=== PATIENT | male | born 1950 | race African-American/Black ===

== ENCOUNTER 2018-11-09 09:30 | Observation (INO) ==
[2018-11-09] MEDS ORDERED: *HR* OxyCODONE Immed Rel 5 MG TABLET PO PRN (12:19)
[2018-11-09] MEDS ORDERED: *HR* HYDROcodone/Acet 5/325 mg TABLET PO PRN (12:19)
[2018-11-09] MEDS ORDERED: Naloxone 0.4 MG/ML INJ IVP PRN (12:19)
[2018-11-09] MEDS ORDERED: *HR* Belladonna Alkaloids/Opium 30 MG RECTAL SUPPOSITORY RC PRN (12:19)
[2018-11-09] MEDS ORDERED: Ondansetron 4 MG/2 ML VIAL IVP PRN (12:19)
[2018-11-09 13:29] LABS: Basophils # 0.1 K/mcL (0.0-0.2); Basophils % 0.5 %; Eosinophils % 0.2 %; Hematocrit 25.3 % (37.5-50.1); Immature Granulocytes % 0.5 % (0-4); Lymphocytes # 2.1 K/mcL (0.6-4.6); Lymphocytes % 18.7 %; Mean Corpuscular HGB Conc 31.2 g/dL (31.6-35.5); Mean Corpuscular Hemoglobin 28.7 pg (28.0-33.3); Mean Platelet Volume 8.8 fL (9.4-12.4); Monocytes # 0.5 K/mcL (0.0-1.3); Monocytes % 4.4 %; Neutrophils # 8.7 K/mcL (1.6-8.9); Platelet Count 366 K/mcL (140-400); Red Blood Count 2.75 M/mcL (4.19-5.50); Segmented Neutrophils % 75.7 %; White Blood Count 11.4 K/mcL (4.3-11.1)
[2018-11-09 13:30] LABS: Hemoglobin 7.9 g/dL (12.9-16.9)
[2018-11-09 13:40] LABS: Potassium 4.4 mEq/L (3.5-5.1)
[2018-11-09] MEDS: 0.9 % Sodium Chloride 1,000 ML IVC SCH (14:36)
--- NOTE | 2018-11-09 16:59 | Urology History & Physical ---
Date of Encounter: 11/09/18 Time of Encounter: 16:56 Assessment and Plan (1) Clot retention of urine Current Visit: Yes Status: Acute CT scan confirms a large amount of clot within his bladder. We will proceed with clot evacuation and fulguration of prostate or any other indicated procedure tomorrow. Hemoglobin at this time 7.9. Patient typed and screened for 2 units. Continue Plavix because of recent heart attack and coronary artery stent. (2) Gross hematuria Current Visit: No Status: Resolved History of Present Illness Chief complaint: Clot retention HPI: Mr. Bernardo is a 68 year old male 4 weeks status post greenlight photo vaporization of the prostate. Was doing well. Clot retention last week. Urine cleared but he returns today because the catheter stopped draining. Past Med Surg Social Fam HX - Past Medical History Medical history: hyperlipidemia, hypertension, myocardial infarction, thyroid disease Additional medical history: snoring, anemia Psychiatric history: no psych history - Past Surgical History Surgical History: angioplasty/stent, knee replacement Additional surgical history: one cardiac stent - Social History Smoking Status: Never smoker Smokeless Tobacco Status: No Alcohol use: none Drug use: none - Family History Mother Living Status: Father Living Status: Medications and Allergies Aspirin 81 mg PO DAILY #30 tab.chew 08/01/18 [Rx] Clopidogrel [Plavix] 75 mg PO DAILY #30 tablet 08/01/18 [Rx] Losartan [Cozaar] 25 mg PO DAILY #30 tablet 08/01/18 [Rx] Metoprolol [Lopressor] 25 mg PO BID #60 tablet 08/01/18 [Rx] amLODIPine [Norvasc] 5 mg PO DAILY #30 tablet 08/01/18 [Rx] Atorvastatin Calcium 80 mg PO HS 10/09/18 [History] metFORMIN [Glucophage] 500 mg PO 0800 10/09/18 [History] Allergy/AdvReac Type Severity Reaction Status Date / Time No Known Allergies Allergy Verified 10/09/18 07:14 Review of Systems - Constitutional fatigue, no chills, no fever(s) - EENT Nose, mouth and throat: no dizziness - Cardiovascular no chest pain - Respiratory no cough - Gastrointestinal abdominal pain - Genitourinary hematuria - Musculoskeletal back pain - Integumentary no erythema - Neurological as per HPI, no confusion - Psychiatric no anxiety - Hematologic/Lymphatic easy bleeding - Allergic/Immunologic no throat swelling Exam Initial Vital Signs Temp Pulse Resp BP Pulse Ox 97.7 F 84 16 125/79 100 11/09/18 10:37 11/09/18 10:37 11/09/18 10:37 11/09/18 10:37 11/09/18 10:37 - General physical appearance Present: no distress, moderate pain - Eyes Present: PERRL - ENT Present: normal nares - Neck Present: no masses - Respiratory Present: normal respiratory effort - Cardiovascular Cardiovascular exam IM: RRR - Abdomen Abdomen: Present: soft, suprapubic tenderness (Distended) - Neurologic Present: normal coordination. Absent: disoriented, confused - Additional Findings Fish catheter in place. I irrigated moderate amount of black clot. CBI did not clear his urine. Urology Results - Labs 11/09/18 13:08 11/09/18 13:08 Abnormal lab results WBC 11.4 K/mcL (4.3-11.1) H 11/09/18 13:08 RBC 2.75 M/mcL (4.19-5.50) L 11/09/18 13:08 Hgb 7.9 g/dL (12.9-16.9) L D 11/09/18 13:08 Hct 25.3 % (37.5-50.1) L 11/09/18 13:08 MCHC 31.2 g/dL (31.6-35.5) L 11/09/18 13:08 RDW 16.0 % (11.5-14.5) H 11/09/18 13:08 MPV 8.8 fL (9.4-12.4) L 11/09/18 13:08 Chloride 109 mEq/L (98-107) H 11/09/18 13:08 BUN 26 mg/dL (8-23) H 11/09/18 13:08 1.54 mg/dL (0.70-1.30) H 11/09/18 13:08 Est GFR ( Amer) 55 (> 60) L 11/09/18 13:08 Est GFR (Non-Af Amer) 45 (> 60) L 11/09/18 13:08 Glucose 125 mg/dL (70-105) H 11/09/18 13:08 Diabetes panel 11/09/18 Range/Units 13:08 Sodium 140 (136-145) mEq/L Potassium 4.4 (3.5-5.1) mEq/L Chloride 109 H (98-107) mEq/L Carbon Dioxide 23 (23-29) mEq/L BUN 26 H (8-23) mg/dL Creatinine 1.54 H (0.70-1.30) mg/dL Glucose 125 H (70-105) mg/dL Calcium 9.0 (8.6-10.3) mg/dL Calcium panel 11/09/18 Range/Units 13:08 Calcium 9.0 (8.6-10.3) mg/dL Pituitary panel 11/09/18 Range/Units 13:08 Sodium 140 (136-145) mEq/L Potassium 4.4 (3.5-5.1) mEq/L Chloride 109 H (98-107) mEq/L Carbon Dioxide 23 (23-29) mEq/L BUN 26 H (8-23) mg/dL Creatinine 1.54 H (0.70-1.30) mg/dL Glucose 125 H (70-105) mg/dL Calcium 9.0 (8.6-10.3) mg/dL Adrenal panel 11/09/18 Range/Units 13:08 Sodium 140 (136-145) mEq/L Potassium 4.4 (3.5-5.1) mEq/L Chloride 109 H (98-107) mEq/L Carbon Dioxide 23 (23-29) mEq/L BUN 26 H (8-23) mg/dL Creatinine 1.54 H (0.70-1.30) mg/dL Glucose 125 H (70-105) mg/dL Calcium 9.0 (8.6-10.3) mg/dL All other labs normal.
--- NOTE | 2018-11-09 18:30 | Anesthesia Evaluation PreOp ---
Date of Encounter: 11/09/18 Time of Encounter: 18:28 - Past History Planned Operation: CYSTO, CLOT EVAC, POSS TURP Cardiac History: MD (07/2018), HTN, Hyperlipidemia, Cardiac Stent (07/2018, mLAD), Other (CAD, dLAD, RPDA) Pulmonary History: Denies Any Significant HX LACTATION SPECIALIST History: Denies Any Significant HX Other Medical History: Renal (4 WKS, POST TURP), Bleeding (ANEMIA, WILL NEED PRBC IF HB IS LOWER IN AM, SECONDARY RESIDUAL CAD), Diabetes Type II, Thyroid Anesthesia History: No Prior Anesthetic Complications, Past Anesthesia Alcohol Use: none Drug use: none Medications and Allergies Aspirin 81 mg PO DAILY #30 tab.chew 08/01/18 [Rx] Clopidogrel [Plavix] 75 mg PO DAILY #30 tablet 08/01/18 [Rx] Losartan [Cozaar] 25 mg PO DAILY #30 tablet 08/01/18 [Rx] Metoprolol [Lopressor] 25 mg PO BID #60 tablet 08/01/18 [Rx] amLODIPine [Norvasc] 5 mg PO DAILY #30 tablet 08/01/18 [Rx] Atorvastatin Calcium 80 mg PO HS 10/09/18 [History] metFORMIN [Glucophage] 500 mg PO 0800 10/09/18 [History] Allergy/AdvReac Type Severity Reaction Status Date / Time No Known Allergies Allergy Verified 10/09/18 07:14 - Meds/Allergy Pre-op Review Medications Reviewed: Yes Allergies Reviewed: Yes Beta Blockers on Current Med List: Yes (METOPROLOL 25 MG BID) If Beta Blockers taken, Date/Time (Last Dose taken): SEE MAR Anesthesia Results - Labs 11/09/18 13:08 11/09/18 13:08 Laboratory Tests 11/09/18 13:08 Est GFR (Non-Af Amer) 45 L Calcium 9.0 Anesthesia Exam Vital Signs/O2 Sat/Glucose, Most Recent Temp Pulse Resp BP Pulse Ox 98.5 F 87 16 103/67 99 11/09/18 15:13 11/09/18 15:13 11/09/18 15:13 11/09/18 15:13 11/09/18 15:13 Weight: 92 KG - BMI 29 NPO (# of Hours): >MN - HEENT Mallampati: I Teeth: Poor dentition - Cardiac Rhythm: Regular - Pulmonary Breath Sounds: bilateral Clear Respiratory Effort: Symmetrical Anesthesia Assess/Plan ASA Score: 3 Anesthetic Plan: General Autologous Blood: Yes (POSSIBLE) Monitoring Plan: Standard Monitors Recovery Plan: PACU
[2018-11-10] MEDS: 0.9 % Sodium Chloride 1,000 ML IVC SCH ×2 (03:02→18:00)
[2018-11-10 06:39] LABS: Hematocrit 22.1 % (37.5-50.1); Hemoglobin 6.9 g/dL (12.9-16.9)
[2018-11-10 07:42] LABS: Hematocrit 22.4 % (37.5-50.1)
[2018-11-10] MEDS ORDERED: *HR* Metformin 500 MG TABLET PO SCH (08:00)
--- NOTE | 2018-11-10 08:03 | Urology Progress Note ---
Date of Encounter: 11/10/18 Time of Encounter: 07:57 - Assessment and Plan (1) Clot retention of urine Current Visit: Yes Status: Acute Assessment and plan: based on CT scan - proceed to OR for clot evacuation and fulguration. one unit PRBCs before surgery. (2) Gross hematuria Current Visit: No Status: Resolved Progress Note Subjective: no new complaints Narrative: pt ok overnight. no clot retention. no CP Objective Initial Vital Signs Temp Pulse Resp BP Pulse Ox 97.7 F 84 16 125/79 100 11/09/18 10:37 11/09/18 10:37 11/09/18 10:37 11/09/18 10:37 11/09/18 10:37 - General physical appearance Present: no distress - Additional Exam dark hematuric urine. did not irrigate. no CBI - Labs 11/10/18 07:13 11/09/18 13:08 Diabetes panel 11/09/18 Range/Units 13:08 Sodium 140 (136-145) mEq/L Potassium 4.4 (3.5-5.1) mEq/L Chloride 109 H (98-107) mEq/L Carbon Dioxide 23 (23-29) mEq/L BUN 26 H (8-23) mg/dL Creatinine 1.54 H (0.70-1.30) mg/dL Glucose 125 H (70-105) mg/dL Calcium 9.0 (8.6-10.3) mg/dL Calcium panel 11/09/18 Range/Units 13:08 Calcium 9.0 (8.6-10.3) mg/dL Pituitary panel 11/09/18 Range/Units 13:08 Sodium 140 (136-145) mEq/L Potassium 4.4 (3.5-5.1) mEq/L Chloride 109 H (98-107) mEq/L Carbon Dioxide 23 (23-29) mEq/L BUN 26 H (8-23) mg/dL Creatinine 1.54 H (0.70-1.30) mg/dL Glucose 125 H (70-105) mg/dL Calcium 9.0 (8.6-10.3) mg/dL Adrenal panel 11/09/18 Range/Units 13:08 Sodium 140 (136-145) mEq/L Potassium 4.4 (3.5-5.1) mEq/L Chloride 109 H (98-107) mEq/L Carbon Dioxide 23 (23-29) mEq/L BUN 26 H (8-23) mg/dL Creatinine 1.54 H (0.70-1.30) mg/dL Glucose 125 H (70-105) mg/dL Calcium 9.0 (8.6-10.3) mg/dL
[2018-11-10] MEDS ORDERED: 0.9 % Sodium Chloride 250 ML ONE (08:32)
[2018-11-10] MEDS ORDERED: amLODIPine 5 MG TABLET PO SCH (09:00)
[2018-11-10] MEDS ORDERED: Aspirin 81 MG TAB.CHEW PO SCH (09:00)
[2018-11-10] MEDS ORDERED: *HR* Propofol 200 MG/20 ML VIAL IVP ONE (13:20)
[2018-11-10] MEDS ORDERED: *HR* FentaNYL (PF) 100 MCG/2 ML VIAL ONE ×2 (13:20→15:31)
[2018-11-10] MEDS ORDERED: Ondansetron 4 MG/2 ML VIAL ONE (13:21)
[2018-11-10] MEDS ORDERED: Dexamethasone 4 MG/ML VIAL ONE (13:21)
[2018-11-10] MEDS ORDERED: Lidocaine -MPF 2% 2 ML VIAL ONE (13:21)
[2018-11-10] MEDS ORDERED: *HR* Succinylcholine 200 MG/10 ML VIAL IVP ONE (13:21)
[2018-11-10] MEDS ORDERED: Lidocaine -MPF 4% 5 ML AMPUL ONE (13:27)
[2018-11-10] MEDS ORDERED: Acetaminophen IV 1,000 MG/100 ML INFUS..BTL IVPB ONE (15:02)
[2018-11-10] MEDS ORDERED: *HR* HYDROmorphone (PF) 1 MG/ML SYRINGE IVP PRN ×2 (15:02→16:44)
[2018-11-10] MEDS ORDERED: *HR* OxyCODONE Immed Rel 5 MG TABLET PO PRN ×3 (15:02→16:44)
[2018-11-10] MEDS ORDERED: *HR* Promethazine 25 MG/ML VIAL IVP PRN (15:02)
[2018-11-10] MEDS ORDERED: Ondansetron 4 MG/2 ML VIAL IVP ONE ×2 (15:02→16:44)
[2018-11-10] MEDS ORDERED: CeFAZolin Syr 2,000MG/20 ML 2,000 MG/20 ML SYRINGE IVPB ONE (15:11)
--- NOTE | 2018-11-10 16:19 | Operative Note ---
Date of procedure: 11/10/18 Pre-op diagnosis: Bleeding and clot retention after greenlight Post-op diagnosis: same Procedure: Cystoscopy with clot evacuation TURP Anesthesia: GETA Surgeon: Johnie Campbell Was there an cafeteria assistant present: No Estimated blood loss (cc): 10 Specimen: Clot and TURP chips Condition: stable Disposition: PACU Procedure in Detail: PROCEDURE IN DETAIL: Patient was taken back to the operating room, positioned supine on the operating table. Anesthesia was applied without complication. They were moved into dorsal lithotomy. Careful attention was maintained to cushion pressure points for patient's safety. The patient was prepped and draped in sterile fashion. The existing 3-way catheter was removed prior to prepping the patient . Time-out was performed to confirm the proper patient and procedure. I placed the resectoscope with visual obturator. Once the resectoscope was in position, I visualized a large clot within the dependent portion of the bladder. Kiera syringe was used to evacuate the clot through the resectoscope. There was some oozing from the prostatic urethra but no major bleeding. I used a 22-[place] loop with a coagulation/cut settings of 80/80 was used to resect the friable appearing prostatic tissue within the prostatic urethra. I did not perform an extensive TURP. I turned the coag up to 120 to fulgurate all edges of the prostatic urethra to help with hemostasis. I was able to control the bleeding fairly well but there was still some mild oozing from the tissue even after fulguration. I elected to place a 22-[place] hematuria catheter and the urine was fairly clear on a light drip..
[2018-11-10] MEDS ORDERED: *HR* Belladonna Alkaloids/Opium 30 MG RECTAL SUPPOSITORY RC PRN (16:44)
[2018-11-10] MEDS ORDERED: Ondansetron 4 MG/2 ML VIAL IVP PRN (16:44)
[2018-11-10] MEDS ORDERED: Naloxone 0.4 MG/ML INJ IVP PRN (16:44)
[2018-11-10] MEDS ORDERED: *HR* HYDROcodone/Acet 5/325 mg TABLET PO PRN (16:44)
--- NOTE | 2018-11-10 16:48 | Anesthesia Evaluation Post Op ---
Date of Encounter: 11/10/18 Time of Encounter: 16:20 - Vital Signs Vital Signs: Vital Signs Temp Pulse Resp BP Pulse Ox 11/10/18 16:25 98.2 F 73 12 146/86 100 11/10/18 16:15 80 12 143/86 100 11/10/18 16:05 80 12 130/82 99 11/10/18 15:55 97.7 F 85 12 144/92 100 11/10/18 11:10 97.8 F 72 16 135/88 99 11/10/18 09:00 98.4 F 85 16 144/83 99 11/10/18 08:57 98.6 F 84 16 134/77 11/10/18 07:04 98.2 F 86 18 113/74 98 11/10/18 05:09 98.6 F 84 16 148/84 99 11/09/18 19:20 97.7 F 93 123/74 Intake and Output 11/10/18 11/10/18 11/10/18 07:59 15:59 23:59 Intake Total 1000 / 1350 350 / 1350 Output Total 1100 / 1860 700 / 1860 60 / 1860 Balance -100 / -510 -350 / -510 -60 / -510 Intake: IV Fluids 1000 / 1000 0.9 % Sodium Chloride 1,000 ML 1000 / 1000 @ 75 mls/hr IVC .[id number] [facility] Rx #:[id number] Oral 0 / 0 Blood Product 350 / 350 Rbcs Leuko Poor As-1 Unit 350 / 350 [id number] Output: Urine 850 / 900 50 / 900 Estimated Blood Loss 10 / 10 Catheter 250 / 950 700 / 950 Other: Intake, CBI Fluid 1,000 Output, CBI Fluid 1,000 Weight 91.8 kg Blood Glucose* 111 102 101 Patient Weight 11/10/18 23:59 Weight 91.8 kg - Lungs Lungs: Clear Ascult./Percussion - Airway Airway: Non-obstructed - Cardiovascular Baseline Rhythm - Mental Status Mental Status: Alert & Oriented, Answers Appropriately, Asleep with brisk response to light stimulation - Pain Pain Scale: 3 Pain Scale used: Numeric (1 - 10) - Nausea Vomiting Nausea Vomiting: Not Present - Hydration Hydration: Tolerates oral liquids - Discharge PostOp Status: Transfer Patient to floor Anes Supervising Prov Stmt: PT seen/evaluated, VSS and has met criteria for discharge to floor. - MD Radha
[2018-11-11] MEDS: 0.9 % Sodium Chloride 1,000 ML IVC SCH (01:03)
[2018-11-11 07:22] VITALS: BP 150/85
--- NOTE | 2018-11-11 07:28 | Urology Progress Note ---
Date of Encounter: 11/11/18 Time of Encounter: 07:27 - Assessment and Plan (1) Clot retention of urine Current Visit: Yes Status: Resolved Assessment and plan: CBI stopped and will check urine later this AM. likely discharge today. (2) Gross hematuria Current Visit: No Status: Resolved Progress Note Narrative: urine completely clear overnight. no issues with cath. Objective Initial Vital Signs Temp Pulse Resp BP Pulse Ox 97.7 F 84 16 125/79 100 11/09/18 10:37 11/09/18 10:37 11/09/18 10:37 11/09/18 10:37 11/09/18 10:37 - General physical appearance Present: no distress - Additional Exam urine clear on moderate drip. - Labs 11/10/18 07:13 11/09/18 13:08 Consult Discharge Plan - Plan Referrals: Johnie Campbell MD [Partnered Physician] -
[2018-11-11] MEDS ORDERED: *HR* Metformin 500 MG TABLET PO SCH (08:00)
[2018-11-11] MEDS ORDERED: Aspirin 81 MG TAB.CHEW PO SCH (09:00)
[2018-11-11] MEDS ORDERED: amLODIPine 5 MG TABLET PO SCH (09:00)
[2018-11-11] MEDS ORDERED: Finasteride 5 MG TABLET PO SCH (09:00)
--- NOTE | 2018-11-11 09:02 | Discharge Summary ---
Orders not resulted at time of discharge: Pending orders 11/10/18 16:01 Surgical Pathology [PTH] Routine Date of Encounter: 11/11/18 Time of Encounter: 08:35 - Discharge Diagnosis (1) Clot retention of urine Priority: Primary Status: Resolved (2) Enlarged prostate with urinary obstruction Priority: Primary Status: Chronic - Hospital Course Hospital course: Mr. Bernardo is a 68 year old male who presents with a history of gross hematuria with clot retention following a greenlight PVP for enlarged prostate w ith outlet obstruction. On 11/10/2018, patient was taken to the operating room where he underwent cystoscopy with clot evacuation and transurethral resection of prostate. There were no surgical complications, and the patient tolerated the procedure well. Postoperative course was relatively unremarkable, and he was dismissed in satisfactory condition. Continuous bladder irrigation was discontinued on postoperative day #1, the patient's urine remained clear. Patient is aware he will need to continue finasteride daily to minimize risk of bleeding, and he will return to the urology office in 5 days for outpatient follow-up and catheter removal. Postoperative expectations, restrictions, activity and follow-up were discussed with patient, and patient verbalized understanding. Time spent discussing smoking cessation with patient: 3 to 10 minutes - Time Spent with Patient Total time spent providing and/or coordinating discharge services: Less than 30 minutes Procedures and tests throughout hospitalization: Cystoscopy with clot evacuation TURP Labs on day of discharge: Labs from last 24 hours 11/10/18 11/10/18 11/09/18 20:17 12:14 17:07 POC Glucose 146 H 102 H Blood Type A POSITIVE Antibody Screen NEGATIVE Crossmatch See Detail - Impressions ITS Impressions Pelvis CT 11/09/18 14:00 IMPRESSION: Distended bladder with extensive intraluminal hemorrhage and likely clots. Loculated air within the anterior aspect of the bladder with Fish catheter. Enlarged prostate gland indenting the base of the bladder. D/ / 11/09/2018 14:13:52 Kendell Cutler MD / patrice Interpreting Provider: Kendell Cutler MD - Discharge Medications Prescriptions: New HYDROcodone/Acet 5/325 mg [[place] 5-325 mg] 1 tab PO Q6H PRN 2 Days #8 tab PRN Reason: Pain Continued amLODIPine [Norvasc] 5 mg PO DAILY #30 tablet Clopidogrel [Plavix] 75 mg PO DAILY #30 tablet Losartan [Cozaar] 25 mg PO DAILY #30 tablet Metoprolol [Lopressor] 25 mg PO BID #60 tablet metFORMIN [Glucophage] 500 mg PO DAILY Atorvastatin Calcium 80 mg PO DAILY Aspirin Enteric Coated [Aspirin EC] 81 mg PO DAILY Home Medications: Clopidogrel [Plavix] 75 mg PO DAILY #30 tablet 08/01/18 [Rx] Losartan [Cozaar] 25 mg PO DAILY #30 tablet 08/01/18 [Rx] Metoprolol [Lopressor] 25 mg PO BID #60 tablet 08/01/18 [Rx] amLODIPine [Norvasc] 5 mg PO DAILY #30 tablet 08/01/18 [Rx] Atorvastatin Calcium 80 mg PO DAILY 10/09/18 [History] metFORMIN [Glucophage] 500 mg PO DAILY 10/09/18 [History] Aspirin Enteric Coated [Aspirin EC] 81 mg PO DAILY 11/10/18 [History] HYDROcodone/Acet 5/325 mg [[place] 5-325 mg] 1 tab PO Q6H PRN 2 Days #8 tab 11/11/18 [Rx] Allergies/Adverse Reactions: Allergy/AdvReac Type Severity Reaction Status Date / Time No Known Allergies Allergy Verified 11/10/18 20:40 Date of admission: 11/09/18 10:20 Primary care physician: PCP NONE Discharging clinician: Rose Uriostegui Anticipated date of discharge: 11/11/18 Exam Initial Vital Signs Temp Pulse Resp BP Pulse Ox 97.7 F 84 16 125/79 100 11/09/18 10:37 11/09/18 10:37 11/09/18 10:37 11/09/18 10:37 11/09/18 10:37 - General physical appearance Present: well developed, no distress, no pain - Eyes Present: PERRL, normal ocular movement - ENT Present: normal nares, no hearing loss, no congestion - Neck Present: no masses, trachea midline, no lymphadenopathy - Respiratory Present: normal respiratory effort - Cardiovascular Cardiovascular exam IM: RRR - Abdomen Abdomen: Present: soft, non tender. Absent: distended - Genitourinary other (Fish catheter is indwelling and draining transparent, clear yellow urine into bedside bag; CBI is) - Integumentary Present: no rash, no abnormal pigmentation - Neurologic Present: normal coordination - Musculoskeletal Present: other (normal posture ) - Patient Status Disposition: Home, Self-Care Condition: Good Functional capacity at discharge: independent ambulation Overall status at discharge: patient is progressing back to baseline - Discharge Instructions Follow Up With: Johnie Campbell MD [Partnered Physician] - Additional Instructions: Call if fever greater than 101 degrees. May expect some light blood in the urine. May expect irritating voiding symptoms such as frequency, hesitancy, burning, urgency. Okay to use Azo [id number]. Continue finasteride daily. Okay to shower. No tub baths, hot tubs, or swimming. No lifting greater than 20 pounds or heavy activity. Okay to drive as long as you are no longer taking narcotic pain medicine. Okay to use [id number] stool softeners twice daily. Catheter care instructions provided by nursing staff. May follow up in urology office as scheduled for catheter removal. - Diet and Activity Activity: increase activity as tolerated Diet: advance to your usual diet
== END 2018-11-11 13:19 | disposition home or self-care (01) ==
LOC: 3ANU
PROVIDERS: ADMIT Urology; ATTEND Urology
PROC: UROTURP (2018-11-10 15:20)

== ENCOUNTER 2019-01-05 20:50 | Inpatient (IN) ==
--- NOTE | 2019-01-05 21:28 | Emergency Department Note ---
Disposition Clinical Impression: Anemia Qualifiers: Anemia type: unspecified type Qualified Code(s): D64.9 - Anemia, unspecified Hematuria Qualifiers: Hematuria type: unspecified type Qualified Code(s): R31.9 - Hematuria, unspecified CKD (chronic kidney disease) Qualifiers: Chronic kidney disease stage: stage 3 (moderate) Qualified Code(s): N18.3 - Chronic kidney disease, stage 3 (moderate) Disposition: Admitted As Inpatient Condition: Fair Forms: ED Satisfaction Letter, Work/School Release Time of Disposition: 22:33 General Adult HPI - General Chief complaint: ED General Medical Stated complaint: Dr. Stanton, Low Hemoglobin Time Seen by Provider: 01/05/19 21:11 Source: patient Mode of arrival: ambulatory Limitations: no limitations Nursing Notes Reviewed: Yes Vital Signs Reviewed: Yes - History of Present Illness HPI Narrative: Patient is a 68-year-old male that presents emergency Department with reports of low hemoglobin. Patient states that he saw his urologist yesterday and had blood work drawn and he was called and told that he needed to go to the emergency department immediately. Patient states that he has had an issue with his hemoglobin since July when he had his heart attack. Patient states that in early November he had a urologic procedure and had some bleeding at that time. Patient states that he saw urology yesterday and had some clots flushed out of his Fish catheter and had blood work drawn and this is what he was called in for. Patient states that his bleeding has been worse since Friday which is approximately 3 days ago. Patient states at that time it was dark-colored blood. Patient states that it is now more of a cranberry juice color. Patient states that he has felt light headed and weak. Patient denies any chest pain, shortness of breath or abdominal pain. Patient states that he has not had any issues with urine draining from his Fish catheter. Pain Scale: 0 - Related Data Home Medications Medication Instructions Recorded Confirmed Atorvastatin Calcium 80 mg PO DAILY 10/09/18 01/05/19 metFORMIN [Glucophage] 500 mg PO DAILY 10/09/18 01/05/19 Aspirin Enteric Coated [Aspirin EC] 81 mg PO DAILY 11/10/18 01/05/19 Finasteride [Proscar] 5 mg PO DAILY 12/04/18 01/05/19 Previous Rx's Medication Instructions Recorded Clopidogrel [Plavix] 75 mg PO DAILY #30 tablet 08/01/18 Losartan [Cozaar] 25 mg PO DAILY #30 tablet 08/01/18 Metoprolol [Lopressor] 25 mg PO BID #60 tablet 08/01/18 amLODIPine [Norvasc] 5 mg PO DAILY #30 tablet 08/01/18 Ferrous Sulfate 325 mg PO BIDWM tablet 12/10/18 Allergies Allergy/AdvReac Type Severity Reaction Status Date / Time No Known Allergies Allergy Verified 01/05/19 21:22 All systems ED: reviewed and negative except as stated. Constitutional: Reports: weakness (Generalized). Denies: fever Cardiovascular: Denies: chest pain Respiratory: Denies: dyspnea Gastrointestinal: Denies: abdominal pain Genitourinary: Reports: hematuria Past Medical History - Past Medical History Medical history: Reports: hyperlipidemia, hypertension, myocardial infarction, thyroid disease Surgical history: Reports: angioplasty/stent, knee replacement Psychiatric history: Reports: no psych history - Social History Smoking Status: Never smoker Smokeless Tobacco Status: No Alcohol use: Reports: none Drug use: Reports: none Physical Exam - General Limitations: no limitations General appearance: alert, in no apparent distress - Head Head exam: atraumatic, normocephalic - Eye Eye exam: Present: normal appearance, EOMI - Neck Neck exam: Present: normal inspection, full ROM, trachea midline - Respiratory Respiratory exam: Present: normal lung sounds bilaterally. Absent: respiratory distress, wheezes - Cardiovascular Cardiovascular exam: Present: regular rate, normal rhythm, normal heart sounds, +S1, +S2 - Abdominal Exam Abdominal exam: Present: soft, Non-Tender, normal bowel sounds - Male exam: Present: other (Patient has a Fish catheter in place with a very small amount of blood tinged urine in his Fish leg bag.) - Neurological Exam Neurological exam: Present: alert, oriented X3 - Psychiatric Psychiatric exam: Present: normal affect, normal mood - Skin Skin exam: Present: warm, dry, intact Course Vital Signs Temperature 98.1 F 01/05/19 20:55 Pulse Rate 121 01/05/19 20:55 Respiratory Rate 15 01/05/19 20:55 Blood Pressure 110/64 01/05/19 20:55 O2 Sat by Pulse Oximetry 100 01/05/19 20:55 Temperature 98.4 F 01/05/19 21:40 Pulse Rate 107 01/05/19 21:40 Respiratory Rate 20 01/05/19 21:40 Blood Pressure 113/72 01/05/19 21:40 O2 Sat by Pulse Oximetry 100 01/05/19 21:40 Oxygen Delivery Oxygen Delivery Room Air Medical Decision Making - MDM Narrative Medical decision making narrative: Due the patient was anything to the emergency department with reports of a low hemoglobin and a hemoglobin that was measured earlier today at 4.5 the patient will have a CBC, BMP, PT/INR and a type and screen as well as an EKG. 2 units of packed red blood cells were ordered. Patient was mildly tachycardic but was not hypotensive. Patient was initially alert and oriented and conversive on exam. Patient has a repeat hemoglobin of 4.3. Patient's renal functions approximate his baseline. I did call and speak to the on-call urologist Dr. Meehan who has agreed to see the patient in consult. Patient will require admission to the hospital for further evaluation and management. His PT/INR was within normal limits. Urinalysis was pending at the time of admission. Spoke with the admitting hospitalist Dr. Danielle and she has accepted the patient their service. Patient be admitted hospital this time for further evaluation of his hematuria and anemia. - Medical Records Medical records reviewed: Yes I reviewed the patient's medical records. - Lab Data Lab results reviewed: Yes I reviewed the patient's lab results. Result diagrams: 01/05/19 21:16 01/05/19 21:16 Lab Results 01/05/19 01/05/19 01/05/19 Range/Units 21:16 21:16 21:16 WBC 11.1 (4.3-11.1) K/mcL RBC 1.48 L (4.19-5.50) M/mcL Hgb 4.3 L* (12.9-16.9) g/dL Hct 14.4 L* (37.5-50.1) % MCV 97.3 (83.0-100.0) fL MCH 29.1 (28.0-33.3) pg MCHC 29.9 L (31.6-35.5) g/dL RDW 16.2 H (11.5-14.5) % Plt Count 277 (140-400) K/mcL MPV 9.1 L (9.4-12.4) fL Immature Gran % 0.4 (0-4) % Seg Neutrophils % 56.7 % Lymphocytes % 33.1 % Monocytes % 7.7 % Eosinophils % 2.1 % Basophils % 0.0 % Neutrophils # 6.3 (1.6-8.9) K/mcL Lymphocytes # 3.7 (0.6-4.6) K/mcL Monocytes # 0.9 (0.0-1.3) K/mcL Eosinophils # 0.2 (0.0-0.6) K/mcL Basophils # 0.0 (0.0-0.2) K/mcL PT 11.3 (9.4-12.1) Seconds INR 1.0 APTT 27.6 (26.0-36.0) Seconds Sodium 142 (136-145) mEq/L Potassium 4.3 (3.5-5.1) mEq/L Chloride 113 H (98-107) mEq/L Carbon Dioxide 21 L (23-29) mEq/L BUN 29 H (8-23) mg/dL Creatinine 1.80 H (0.70-1.30) mg/dL Est GFR ( Amer) 46 L (> 60) Est GFR (Non-Af Amer) 38 L (> 60) BUN/Creatinine Ratio 16 (6-26) Glucose 123 H (70-105) mg/dL Calculated Osmolality 301 H (280-300) Calcium 9.2 (8.6-10.3) mg/dL - Radiology Data Radiology results reviewed: Yes I reviewed the patient's radiology results. - EKG Data EKG #1 EKG attestation: Yes I reviewed and interpreted this EKG. EKG results narrative: EKG shows a sinus tachycardia at a rate of 101 bpm, GA interval 216, QRS duration 99, QTC of 452. There is no evidence of STEMI on EKG.
[2019-01-05 21:48] LABS: Eosinophils # 0.2 K/mcL (0.0-0.6); Eosinophils % 2.1 %; Immature Granulocytes % 0.4 % (0-4); Lymphocytes # 3.7 K/mcL (0.6-4.6); Lymphocytes % 33.1 %; Mean Corpuscular HGB Conc 29.9 g/dL (31.6-35.5); Mean Corpuscular Hemoglobin 29.1 pg (28.0-33.3); Mean Corpuscular Volume 97.3 fL (83.0-100.0); Mean Platelet Volume 9.1 fL (9.4-12.4); Monocytes # 0.9 K/mcL (0.0-1.3); Monocytes % 7.7 %; Neutrophils # 6.3 K/mcL (1.6-8.9); Platelet Count 277 K/mcL (140-400); Red Blood Count 1.48 M/mcL (4.19-5.50); Red Cell Distribution Width 16.2 % (11.5-14.5); Segmented Neutrophils % 56.7 %; White Blood Count 11.1 K/mcL (4.3-11.1)
[2019-01-05 21:50] LABS: Hematocrit 14.4 % (37.5-50.1); Hemoglobin 4.3 g/dL (12.9-16.9)
[2019-01-05 21:54] LABS: Prothrombin Time 11.3 Seconds (9.4-12.1)
[2019-01-05 21:57] LABS: Activated Partial Thrombo Time 27.6 Seconds (26.0-36.0)
[2019-01-05 21:58] LABS: Calcium 9.2 mg/dL (8.6-10.3); Potassium 4.3 mEq/L (3.5-5.1)
--- NOTE | 2019-01-05 22:44 | Emergency Department Note ---
Disposition Clinical Impression: Anemia Qualifiers: Anemia type: unspecified type Qualified Code(s): D64.9 - Anemia, unspecified Hematuria Qualifiers: Hematuria type: unspecified type Qualified Code(s): R31.9 - Hematuria, unspecified CKD (chronic kidney disease) Qualifiers: Chronic kidney disease stage: stage 3 (moderate) Qualified Code(s): N18.3 - Chronic kidney disease, stage 3 (moderate) Disposition: Admitted As Inpatient Condition: Fair Forms: ED Satisfaction Letter, Work/School Release Time of Disposition: 22:33 General Adult HPI - General Chief complaint: ED General Medical Stated complaint: Dr. Stanton, Low Hemoglobin Time Seen by Provider: 01/05/19 21:11 Source: patient Mode of arrival: ambulatory Limitations: no limitations Nursing Notes Reviewed: Yes Vital Signs Reviewed: Yes - History of Present Illness Pain Scale: 0 - Related Data Home Medications Medication Instructions Recorded Confirmed Atorvastatin Calcium 80 mg PO DAILY 10/09/18 01/05/19 metFORMIN [Glucophage] 500 mg PO DAILY 10/09/18 01/05/19 Aspirin Enteric Coated [Aspirin EC] 81 mg PO DAILY 11/10/18 01/05/19 Finasteride [Proscar] 5 mg PO DAILY 12/04/18 01/05/19 Previous Rx's Medication Instructions Recorded Clopidogrel [Plavix] 75 mg PO DAILY #30 tablet 08/01/18 Losartan [Cozaar] 25 mg PO DAILY #30 tablet 08/01/18 Metoprolol [Lopressor] 25 mg PO BID #60 tablet 08/01/18 amLODIPine [Norvasc] 5 mg PO DAILY #30 tablet 08/01/18 Ferrous Sulfate 325 mg PO BIDWM tablet 12/10/18 Allergies Allergy/AdvReac Type Severity Reaction Status Date / Time No Known Allergies Allergy Verified 01/05/19 21:22 Constitutional: Reports: weakness (Generalized). Denies: fever Cardiovascular: Denies: chest pain Respiratory: Denies: dyspnea Gastrointestinal: Denies: abdominal pain Genitourinary: Reports: hematuria Past Medical History - Past Medical History Medical history: Reports: hyperlipidemia, hypertension, myocardial infarction, thyroid disease Surgical history: Reports: angioplasty/stent, knee replacement Psychiatric history: Reports: no psych history - Social History Smoking Status: Never smoker Smokeless Tobacco Status: No Alcohol use: Reports: none Drug use: Reports: none Physical Exam - General Limitations: no limitations General appearance: alert, in no apparent distress Course Vital Signs Temperature 98.1 F 01/05/19 20:55 Pulse Rate 121 01/05/19 20:55 Respiratory Rate 15 01/05/19 20:55 Blood Pressure 110/64 01/05/19 20:55 O2 Sat by Pulse Oximetry 100 01/05/19 20:55 Temperature 98.4 F 01/05/19 21:40 Pulse Rate 99 01/05/19 22:18 Respiratory Rate 20 01/05/19 22:18 Blood Pressure 115/77 01/05/19 22:18 O2 Sat by Pulse Oximetry 100 01/05/19 22:18 Oxygen Delivery Oxygen Delivery Room Air Medical Decision Making - Medical Records Medical records reviewed: Yes I reviewed the patient's medical records. - Lab Data Lab results reviewed: Yes I reviewed the patient's lab results. Result diagrams: 01/05/19 21:16 01/05/19 21:16 Lab Results 01/05/19 01/05/19 01/05/19 Range/Units 21:16 21:16 21:16 WBC 11.1 (4.3-11.1) K/mcL RBC 1.48 L (4.19-5.50) M/mcL Hgb 4.3 L* (12.9-16.9) g/dL Hct 14.4 L* (37.5-50.1) % MCV 97.3 (83.0-100.0) fL MCH 29.1 (28.0-33.3) pg MCHC 29.9 L (31.6-35.5) g/dL RDW 16.2 H (11.5-14.5) % Plt Count 277 (140-400) K/mcL MPV 9.1 L (9.4-12.4) fL Immature Gran % 0.4 (0-4) % Seg Neutrophils % 56.7 % Lymphocytes % 33.1 % Monocytes % 7.7 % Eosinophils % 2.1 % Basophils % 0.0 % Neutrophils # 6.3 (1.6-8.9) K/mcL Lymphocytes # 3.7 (0.6-4.6) K/mcL Monocytes # 0.9 (0.0-1.3) K/mcL Eosinophils # 0.2 (0.0-0.6) K/mcL Basophils # 0.0 (0.0-0.2) K/mcL PT 11.3 (9.4-12.1) Seconds INR 1.0 APTT 27.6 (26.0-36.0) Seconds Sodium 142 (136-145) mEq/L Potassium 4.3 (3.5-5.1) mEq/L Chloride 113 H (98-107) mEq/L Carbon Dioxide 21 L (23-29) mEq/L BUN 29 H (8-23) mg/dL Creatinine 1.80 H (0.70-1.30) mg/dL Est GFR ( Amer) 46 L (> 60) Est GFR (Non-Af Amer) 38 L (> 60) BUN/Creatinine Ratio 16 (6-26) Glucose 123 H (70-105) mg/dL Calculated Osmolality 301 H (280-300) Calcium 9.2 (8.6-10.3) mg/dL Blood Type Antibody Screen Crossmatch 01/05/19 Range/Units 21:29 WBC (4.3-11.1) K/mcL RBC (4.19-5.50) M/mcL Hgb (12.9-16.9) g/dL Hct (37.5-50.1) % MCV (83.0-100.0) fL MCH (28.0-33.3) pg MCHC (31.6-35.5) g/dL RDW (11.5-14.5) % Plt Count (140-400) K/mcL MPV (9.4-12.4) fL Immature Gran % (0-4) % Seg Neutrophils % % Lymphocytes % % Monocytes % % Eosinophils % % Basophils % % Neutrophils # (1.6-8.9) K/mcL Lymphocytes # (0.6-4.6) K/mcL Monocytes # (0.0-1.3) K/mcL Eosinophils # (0.0-0.6) K/mcL Basophils # (0.0-0.2) K/mcL PT (9.4-12.1) Seconds INR APTT (26.0-36.0) Seconds Sodium (136-145) mEq/L Potassium (3.5-5.1) mEq/L Chloride (98-107) mEq/L Carbon Dioxide (23-29) mEq/L BUN (8-23) mg/dL Creatinine (0.70-1.30) mg/dL Est GFR ( Amer) (> 60) Est GFR (Non-Af Amer) (> 60) BUN/Creatinine Ratio (6-26) Glucose (70-105) mg/dL Calculated Osmolality (280-300) Calcium (8.6-10.3) mg/dL Blood Type A POSITIVE Antibody Screen NEGATIVE Crossmatch See Detail - EKG Data EKG #1 EKG attestation: Yes I reviewed and interpreted this EKG. EKG results narrative: EKG showed sinus tachycardia with ventricular rate of 101. First-degree A-V block. No significant ST segment elevation or depression. No arrhythmia or ectopy. Critical Care Time Critical Care Time: No Attestation Statement - Attestation Attestation: I, Neil Alvarez MD, personally evaluated this patient and discussed their management with the resident physician. I reviewed the resident's note and agree with the documented findings, medical decision making, and plan of care. I reviewed the residents documentation and agree with the residents assessment and plan of care. I have personally had face to face time with the patient. I personally supervised and was present for the romero/critical portions of the following procedures completed by the resident: EKG interpretation. 68-year-old male referred to the emergency department for severe anemia. Patient has been having problems with ongoing hematuria for some time. He had a procedure by urology last month. He was seen yesterday by Dr. Meehan and had his catheter replaced. He has had increased hematuria with dark red urine for the past 3-4 days or more. He states today the urine is improved and is just cranberry colored. He had lab work today and was found to have a hemoglobin of 4.5. He was contacted by Dr. Meehan and advised to come to the emergency d epartment. He states he has felt a little weak and dizzy intermittently. No chest pain or shortness of breath. No syncope. On examination patient is a well-developed well-nourished well-appearing elderly male in no acute distress. He is alert and oriented 3. There is no cyanosis or diaphoresis. Breath sounds are clear and equal bilaterally. Heart regular with a mild tachycardia. Abdomen is soft and nontender with normal bowel sounds. EKG showed sinus tachycardia with ventricular rate of 101. First-degree A-V block. No significant ST segment elevation or depression. No arrhythmia or ectopy. Labs reviewed. Hemoglobin 4.3. Blood ordered. The hospitalist, Dr. Danielle, was consulted and accepted admission of the patient. The urologist, Dr. Meehan, was also consulted and notified of the patient being admitted to the hospitalist service and will consult on the patient in the hospital.
--- NOTE | 2019-01-06 | Internal Med History&Physical ---
Date of Encounter: 01/06/19 Time of Encounter: 00:00 Internal Medicine - H&P: HPI History of present illness: Mr. Bernardo is a 68 year old male medical history ofhyperlipidemia, hypertension, myocardial infarction, thyroid disease who presented to the ER with abnormal laboratory data as that is suggestive of severe anemia with reported hemoglobin around 4.5 patient the patient status post urologic procedure in November and and has a chronic Fish catheter , the patient reported that since the procedure he has been experiencing gross hematuria. The patient reported progressive worsening of gross hematuria for the last 3 days, The patient was seen by neurology yesterday and and his laboratory data was suggestive of severe anemia and was advised to seek medical attention. The patient complaining of lightheadedness, palpitation however he denies chest pain, shortness of breath, paroxysmal nocturnal dyspnea, orthopnea, or progressive worsening of lower extremity edema. The patient was evaluated by the ER staff, 2 units of RBCs was transfused and patient was admitted for further evaluation and management. Urology was consulted and they will see the patient in a.m.. Past Med Surg Social Fam HX - Past Medical History Medical history: hyperlipidemia, hypertension, myocardial infarction, thyroid disease Additional medical history: snoring, anemia Psychiatric history: no psych history - Past Surgical History Surgical History: angioplasty/stent, knee replacement Additional surgical history: one cardiac stent - Social History Smoking Status: Never smoker Smokeless Tobacco Status: No Alcohol use: none Drug use: none - Family History Mother Living Status: Father Living Status: Internal Medicine - H&P: Meds Clopidogrel [Plavix] 75 mg PO DAILY #30 tablet 08/01/18 [Rx] Losartan [Cozaar] 25 mg PO DAILY #30 tablet 08/01/18 [Rx] Metoprolol [Lopressor] 25 mg PO BID #60 tablet 08/01/18 [Rx] amLODIPine [Norvasc] 5 mg PO DAILY #30 tablet 08/01/18 [Rx] Atorvastatin Calcium 80 mg PO DAILY 10/09/18 [History] metFORMIN [Glucophage] 500 mg PO DAILY 10/09/18 [History] Aspirin Enteric Coated [Aspirin EC] 81 mg PO DAILY 11/10/18 [History] Finasteride [Proscar] 5 mg PO DAILY 12/04/18 [History] Ferrous Sulfate 325 mg PO DAILY 01/05/19 [History] Amoxicillin/Clavulanate [Augmentin] 875 mg PO BIDWM 5 Days #10 tablet 01/10/19 [Rx] Allergy/AdvReac Type Severity Reaction Status Date / Time No Known Allergies Allergy Verified 01/05/19 22:58 All Systems PM: A 10-system review of systems was performed and is negative for pertinent findings except as documented above in the HPI. - Constitutional Vitals: Temp Pulse Resp BP Pulse Ox 99.3 F 91 16 118/79 100 01/05/19 23:48 01/05/19 23:48 01/05/19 23:48 01/05/19 23:48 01/05/19 23:48 General appearance: Present: A&O X 3 Exam: ` - Head Head exam: Present: normocephalic - Neck Neck exam general surgery: Present: supple, trachea midline. Absent: lymphadenopathy - Respiratory Respiratory exam: Present: CTAB. Absent: accessory muscle use, rales, rhonchi, wheezes - Cardiovascular Cardiovascular exam: Present: RRR, +S1, +S2. Absent: diastolic murmur, gallop, rubs, systolic murmur - GI/Abdominal GI/Abdominal exam: Present: normal bowel sounds, soft, no peritoneal signs. Absent: distended, tenderness - Extremities Exam Extremities exam: Present: warm, radial pulses palpable and symmetrical. Absent: calf tenderness, cyanotic, pedal edema Internal Med - H&P Results - Labs CBC & Chem 7: 01/10/19 04:21 01/10/19 04:21 Labs: Short CBC 01/05/19 Range/Units 21:16 WBC 11.1 (4.3-11.1) K/mcL Hgb 4.3 L* (12.9-16.9) g/dL Hct 14.4 L* (37.5-50.1) % Plt Count 277 (140-400) K/mcL Neutrophils # 6.3 (1.6-8.9) K/mcL BMP 01/05/19 21:16 Sodium 142 Potassium 4.3 Chloride 113 H Carbon Dioxide 21 L BUN 29 H Creatinine 1.80 H Glucose 123 H Calcium 9.2 - Assessment and Plan (1) Hematuria Status: Acute Assessment and plan: patient status post urologic procedure in November and and has a chronic Fish catheter , the patient reported that since the procedure he has been experiencing gross hematuria. Hematology has seen the patient on the office and will see the patient this a.m. for further evaluation and management Qualifiers: Hematuria type: gross Qualified Code(s): R31.0 - Gross hematuria (2) Hypertension Status: Chronic Assessment and plan: We will continue home medication, adjust high blood pressure regimen if indicated Qualifiers: Hypertension type: essential hypertension Qualified Code(s): I10 - Essential (primary) hypertension (3) Hypothyroid Status: Acute Assessment and plan: We will continue home thyroxine Qualifiers: Hypothyroidism type: unspecified Qualified Code(s): E03.9 - Hypothyroidism, unspecified (4) Urinary retention with incomplete bladder emptying Status: Acute (5) Enlarged prostate with urinary obstruction Status: Chronic (6) Acute on chronic anemia Status: Acute Assessment and plan: Most likely secondary to chronic blood loss in the setting of hematuria which was exacerbated by the progressive worsening of herhematuria over the last 3 days, we will continue to transfuse for hemoglobin less than 7 continue to monitor H&H closely. The goals of care is to treat the underlying cause of chronic blood loss - Time Spent With Patient Total time spent is greater than 50% in coordination of care (as documented) at patient's floor/unit and/or counseling patient:
[2019-01-06] MEDS ORDERED: Naloxone 0.4 MG/ML INJ IVP PRN (00:59)
[2019-01-06] MEDS ORDERED: Ondansetron 4 MG/2 ML VIAL IVP PRN (01:04)
[2019-01-06] MEDS ORDERED: Dextrose Gel 15 GM/37.5 ML TUBE PO PRN ×2 (01:16)
[2019-01-06] MEDS ORDERED: *HR* Dextrose 50 % in Water (Syg) 50 ML SYRINGE IVP PRN (01:16)
[2019-01-06] MEDS ORDERED: D5% in Water 1,000 ML IVC PRN (01:16)
[2019-01-06] MEDS: 0.9 % Sodium Chloride 1,000 ML IVC SCH ×2 (02:23→11:02)
[2019-01-06 02:45] LABS: Monocytes % 6.3 %; Red Cell Distribution Width 15.1 % (11.5-14.5)
[2019-01-06 02:47] LABS: Basophils % 0.1 %; Eosinophils # 0.2 K/mcL (0.0-0.6); Eosinophils % 1.7 %; Hematocrit 16.4 % (37.5-50.1); Immature Granulocytes % 0.2 % (0-4); Lymphocytes # 3.3 K/mcL (0.6-4.6); Lymphocytes % 33.5 %; Mean Corpuscular HGB Conc 30.5 g/dL (31.6-35.5); Mean Corpuscular Hemoglobin 29.6 pg (28.0-33.3); Mean Platelet Volume 9.2 fL (9.4-12.4); Monocytes # 0.6 K/mcL (0.0-1.3); Neutrophils # 5.7 K/mcL (1.6-8.9); Platelet Count 255 K/mcL (140-400); Red Blood Count 1.69 M/mcL (4.19-5.50); Segmented Neutrophils % 58.2 %; White Blood Count 9.8 K/mcL (4.3-11.1)
[2019-01-06 02:54] LABS: Prothrombin Time 11.6 Seconds (9.4-12.1)
[2019-01-06 03:05] LABS: Albumin 3.3 g/dL (3.5-5.7); Albumin/Globulin Ratio 1.5 (1.1-2.2); Bilirubin,Total 0.4 mg/dL (0.3-1.0); Calcium 8.8 mg/dL (8.6-10.3); Chol/HDL Ratio 2.9 (0-4.9); Globulin 2.2 g/dL (2.4-3.5); Magnesium 1.9 mg/dL (1.6-2.6); Phosphorous 3.8 mg/dL (2.7-4.5); Potassium 3.9 mEq/L (3.5-5.1); Total Protein 5.5 g/dL (6.4-8.9)
[2019-01-06] MEDS ORDERED: 0.9 % Sodium Chloride 250 ML ONE ×2 (04:07→20:49)
[2019-01-06 08:48] LABS: Estimated Average Glucose 97 mg/dl
[2019-01-06 09:19] LABS: Basophils # 0.1 K/mcL (0.0-0.2); Basophils % 0.8 %; Eosinophils # 0.3 K/mcL (0.0-0.6); Eosinophils % 2.8 %; Hematocrit 23.2 % (37.5-50.1); Immature Granulocytes % 0.3 % (0-4); Lymphocytes # 2.5 K/mcL (0.6-4.6); Lymphocytes % 27.7 %; Mean Corpuscular HGB Conc 31.9 g/dL (31.6-35.5); Mean Platelet Volume 8.8 fL (9.4-12.4); Monocytes # 0.5 K/mcL (0.0-1.3); Monocytes % 6.1 %; Neutrophils # 5.5 K/mcL (1.6-8.9); Platelet Count 260 K/mcL (140-400); Red Blood Count 2.55 M/mcL (4.19-5.50); Red Cell Distribution Width 15.7 % (11.5-14.5); Segmented Neutrophils % 62.3 %; White Blood Count 8.9 K/mcL (4.3-11.1)
[2019-01-06 09:22] LABS: Hemoglobin 7.4 g/dL (12.9-16.9)
[2019-01-06] MEDS: Insulin LISPRO 300 UNITS/3 ML VIAL SQ SCH ×3 (09:55→17:54)
--- NOTE | 2019-01-06 10:08 | Urology - Consult Note ---
<Rose Uriostegui N - Last Filed: 01/06/19 10:06> Date of Encounter: 01/06/19 Time of Encounter: 08:00 - Assessment and Plan (1) Hematuria Current Visit: Yes Status: Acute Assessment and plan: Patient is a 68-year-old male who presents with gross hematuria following initial greenlight PVP and cardiac stent placement in September 2018. We discussed holding anticoagulation. Dr. Meehan will reevaluate patient this afternoon. He is considering proceeding with a transurethral resection of prostate. Qualifiers: Hematuria type: gross Qualified Code(s): R31.0 - Gross hematuria Urology CN:HPI Consult date: 01/06/19 Reason for consult Urology: Gross Hematuria Requesting physician: Kj Campbell History of present illness: Patient is a 68-year-old male well-known to our service who presents with a history of gross hematuria and severe iron deficiency anemia. Patient was evaluated in our office 2 days ago on 01/04/2019 at which time he had presented with a 4 day history of gross blood in the urine. A 22-Japanese catheter was placed and applied to leg bag for drainage. Patient reports experiencing multiple clots in his urine over the last 2 days. He began feeling weak and fatigued and subsequently presented to the emergency department. On initial evaluation, his hemoglobin was markedly diminished at 4.3 and hematocrit of 14.4. Patient was urgently admitted and transfused 2 units. Current hemoglobin is 7.4. Patient initially underwent a greenlight photo vaporization of the prostate on 10/09/2018, and he was unable to stop Plavix due to recent history of myocardial infarction and cardiac stent placement. Patient was admitted and treated for clot retention with continuous bladder irrigation. Ultimately, on 11/10/2018, the patient was taken back to the operating room where he underwent a cystoscopy, clot evacuation and fulguration. Patient experienced a similar presentation on 12/04/2018 at which time he was admitted for a hemoglobin of 5.3. Hematuria catheter was placed for 1 week. Patient reports he was doing very well after removal of hematuria catheter up until approximately 1 week ago. On my evaluation, patient is sitting upright in bed in no apparent distress, and he reports feeling somewhat improved at present. 22 Fr-Fish catheter is indwelling and draining opaque tea colored urine. Past Med Surg Social Fam HX - Past Medical History Medical history: hyperlipidemia, hypertension, myocardial infarction, thyroid disease Additional medical history: snoring, anemia Psychiatric history: no psych history - Past Surgical History Surgical History: angioplasty/stent, knee replacement Additional surgical history: one cardiac stent - Social History Smoking Status: Never smoker Smokeless Tobacco Status: No Alcohol use: none Drug use: none - Family History Mother Living Status: Father Living Status: Medications and Allergies Clopidogrel [Plavix] 75 mg PO DAILY #30 tablet 08/01/18 [Rx] Losartan [Cozaar] 25 mg PO DAILY #30 tablet 08/01/18 [Rx] Metoprolol [Lopressor] 25 mg PO BID #60 tablet 08/01/18 [Rx] amLODIPine [Norvasc] 5 mg PO DAILY #30 tablet 08/01/18 [Rx] Atorvastatin Calcium 80 mg PO DAILY 10/09/18 [History] metFORMIN [Glucophage] 500 mg PO DAILY 10/09/18 [History] Aspirin Enteric Coated [Aspirin EC] 81 mg PO DAILY 11/10/18 [History] Finasteride [Proscar] 5 mg PO DAILY 12/04/18 [History] Ferrous Sulfate 325 mg PO DAILY 01/05/19 [History] Allergy/AdvReac Type Severity Reaction Status Date / Time No Known Allergies Allergy Verified 01/05/19 22:58 Review of Systems - Constitutional fatigue, weakness, no chills - EENT Nose, mouth and throat: no dizziness, no headache(s) - Cardiovascular no chest pain, no diaphoresis - Respiratory no cough, no dyspnea - Gastrointestinal no abdominal pain, no nausea, no vomiting - Genitourinary change in urinary stream, difficulty urinating, hematuria, no dysuria, no urinary frequency, no urinary hesitancy, no urinary incontinence, no urinary urgency - Musculoskeletal no back pain, no muscle weakness - Integumentary no erythema, no rash - Neurological weakness, no confusion, no syncope - Psychiatric no anxiety, no confusion - Hematologic/Lymphatic easy bleeding, easy bruising - Allergic/Immunologic no throat swelling, no wheezing Exam Initial Vital Signs Temp Pulse Resp BP Pulse Ox 98.1 F 121 15 110/64 100 01/05/19 20:55 01/05/19 20:55 01/05/19 20:55 01/05/19 20:55 01/05/19 20:55 - General physical appearance Present: well developed, no distress, no pain - Eyes Present: PERRL, normal ocular movement - ENT Present: normal nares, no hearing loss, no congestion - Neck Present: no masses, trachea midline, no lymphadenopathy - Respiratory Present: normal respiratory effort - Cardiovascular Cardiovascular exam IM: RRR - Abdomen Abdomen: Present: soft, non tender. Absent: distended - Genitourinary normal penis with no external lesions, other (Fish catheter is indwelling and draining opaque, tea-colored urine into leg bag) Urethral meatis: Present: patent - Integumentary Present: no rash, no abnormal pigmentation - Neurologic Present: normal coordination - Musculoskeletal Present: other (Normal posture) Urology Results - Labs 01/06/19 09:06 01/06/19 02:35 Abnormal lab results RBC 2.55 M/mcL (4.19-5.50) L 01/06/19 09:06 Hgb 7.4 g/dL (12.9-16.9) L D 01/06/19 09:06 Hct 23.2 % (37.5-50.1) L 01/06/19 09:06 MCHC 30.5 g/dL (31.6-35.5) L 01/06/19 02:35 RDW 15.7 % (11.5-14.5) H 01/06/19 09:06 MPV 8.8 fL (9.4-12.4) L 01/06/19 09:06 Chloride 114 mEq/L (98-107) H 01/06/19 02:35 Carbon Dioxide 21 mEq/L (23-29) L 01/06/19 02:35 BUN 28 mg/dL (8-23) H 01/06/19 02:35 Creatinine 1.63 mg/dL (0.70-1.30) H 01/06/19 02:35 Est GFR ( Amer) 52 (> 60) L 01/06/19 02:35 Est GFR (Non-Af Amer) 43 (> 60) L 01/06/19 02:35 Glucose 123 mg/dL (70-105) H 01/05/19 21:16 Calculated Osmolality 301 (280-300) H 01/05/19 21:16 AST 10 Units/L (13-39) L 01/06/19 02:35 Serum Total Protein 5.5 g/dL (6.4-8.9) L 01/06/19 02:35 Albumin 3.3 g/dL (3.5-5.7) L 01/06/19 02:35 Globulin 2.2 g/dL (2.4-3.5) L 01/06/19 02:35 HDL Cholesterol 36 mg/dL (40-59) L 01/06/19 02:35 Crossmatch See Detail 01/05/19 21:29 Diabetes panel 01/05/19 01/06/19 01/06/19 Range/Units 21:16 02:35 02:35 Sodium 142 140 (136-145) mEq/L Potassium 4.3 3.9 (3.5-5.1) mEq/L Chloride 113 H 114 H (98-107) mEq/L Carbon Dioxide 21 L 21 L (23-29) mEq/L BUN 29 H 28 H (8-23) mg/dL Creatinine 1.80 H 1.63 H (0.70-1.30) mg/dL Glucose 123 H 104 (70-105) mg/dL Hemoglobin A1c 5.0 ( - 5.6) % Calcium 9.2 8.8 (8.6-10.3) mg/dL AST 10 L (13-39) Units/L ALT 11 (7-52) Units/L Alkaline Phosphatase 53 (34-104) Units/L Albumin 3.3 L (3.5-5.7) g/dL Triglycerides 124 (< 150) mg/dL HDL Cholesterol 36 L (40-59) mg/dL Calcium panel 01/05/19 01/06/19 Range/Units 21:16 02:35 Calcium 9.2 8.8 (8.6-10.3) mg/dL Phosphorus 3.8 (2.7-4.5) mg/dL Albumin 3.3 L (3.5-5.7) g/dL Pituitary panel 01/05/19 01/06/19 Range/Units 21:16 02:35 Sodium 142 140 (136-145) mEq/L Potassium 4.3 3.9 (3.5-5.1) mEq/L Chloride 113 H 114 H (98-107) mEq/L Carbon Dioxide 21 L 21 L (23-29) mEq/L BUN 29 H 28 H (8-23) mg/dL Creatinine 1.80 H 1.63 H (0.70-1.30) mg/dL Glucose 123 H 104 (70-105) mg/dL Calcium 9.2 8.8 (8.6-10.3) mg/dL Adrenal panel 01/05/19 01/06/19 Range/Units 21:16 02:35 Sodium 142 140 (136-145) mEq/L Potassium 4.3 3.9 (3.5-5.1) mEq/L Chloride 113 H 114 H (98-107) mEq/L Carbon Dioxide 21 L 21 L (23-29) mEq/L BUN 29 H 28 H (8-23) mg/dL Creatinine 1.80 H 1.63 H (0.70-1.30) mg/dL Glucose 123 H 104 (70-105) mg/dL Calcium 9.2 8.8 (8.6-10.3) mg/dL Total Bilirubin 0.4 (0.3-1.0) mg/dL AST 10 L (13-39) Units/L ALT 11 (7-52) Units/L Alkaline Phosphatase 53 (34-104) Units/L Albumin 3.3 L (3.5-5.7) g/dL All other labs normal. Consult Discharge Plan - Plan Referrals: NONE,PCP [Primary Care Provider] - <John Meehan - Last Filed: 01/06/19 23:03> Date of Encounter: 01/06/19 - Assessment and Plan (1) Hematuria Current Visit: Yes Status: Acute Assessment and plan: Patient seen and examined independently. Above findings verified. Discussed options for management of recurrent admissions for hemodynamically significant intermittent hematuria following laser vaporization of the prostate in September of this year. Presented with H/H of 09/08. Plan: Hold anticoagulation for 48-72 hours in anticipation of TURP on Friday for surgical address of non-healing post PVP prostatic fossa with recurrent life threatening hematuria. Monitor and transfuse as required. Qualifiers: Hematuria type: gross Qualified Code(s): R31.0 - Gross hematuria (2) Enlarged prostate with urinary obstruction Current Visit: No Status: Chronic Exam Initial Vital Signs Temp Pulse Resp BP Pulse Ox 98.1 F 121 15 110/64 100 01/05/19 20:55 01/05/19 20:55 01/05/19 20:55 01/05/19 20:55 01/05/19 20:55 Urology Results - Labs 01/06/19 21:31 01/06/19 02:35 Abnormal lab results RBC 2.15 M/mcL (4.19-5.50) L 01/06/19 16:51 Hgb 6.4 g/dL (12.9-16.9) L 01/06/19 21:31 Hct 20.3 % (37.5-50.1) L 01/06/19 21:31 MCHC 31.2 g/dL (31.6-35.5) L 01/06/19 16:51 RDW 16.0 % (11.5-14.5) H 01/06/19 16:51 MPV 8.8 fL (9.4-12.4) L 01/06/19 09:06 Chloride 114 mEq/L (98-107) H 01/06/19 02:35 Carbon Dioxide 21 mEq/L (23-29) L 01/06/19 02:35 BUN 28 mg/dL (8-23) H 01/06/19 02:35 Creatinine 1.63 mg/dL (0.70-1.30) H 01/06/19 02:35 Est GFR ( Amer) 52 (> 60) L 01/06/19 02:35 Est GFR (Non-Af Amer) 43 (> 60) L 01/06/19 02:35 Glucose 123 mg/dL (70-105) H 01/05/19 21:16 POC Glucose 124 mg/dL (70-99) H 01/06/19 18:52 Calculated Osmolality 301 (280-300) H 01/05/19 21:16 AST 10 Units/L (13-39) L 01/06/19 02:35 Serum Total Protein 5.5 g/dL (6.4-8.9) L 01/06/19 02:35 Albumin 3.3 g/dL (3.5-5.7) L 01/06/19 02:35 Globulin 2.2 g/dL (2.4-3.5) L 01/06/19 02:35 HDL Cholesterol 36 mg/dL (40-59) L 01/06/19 02:35 Crossmatch See Detail 01/05/19 21:29 Diabetes panel 01/06/19 01/06/19 Range/Units 02:35 02:35 Sodium 140 (136-145) mEq/L Potassium 3.9 (3.5-5.1) mEq/L Chloride 114 H (98-107) mEq/L Carbon Dioxide 21 L (23-29) mEq/L BUN 28 H (8-23) mg/dL Creatinine 1.63 H (0.70-1.30) mg/dL Glucose 104 (70-105) mg/dL Hemoglobin A1c 5.0 ( - 5.6) % Calcium 8.8 (8.6-10.3) mg/dL AST 10 L (13-39) Units/L ALT 11 (7-52) Units/L Alkaline Phosphatase 53 (34-104) Units/L Albumin 3.3 L (3.5-5.7) g/dL Triglycerides 124 (< 150) mg/dL HDL Cholesterol 36 L (40-59) mg/dL Calcium panel 01/06/19 Range/Units 02:35 Calcium 8.8 (8.6-10.3) mg/dL Phosphorus 3.8 (2.7-4.5) mg/dL Albumin 3.3 L (3.5-5.7) g/dL Pituitary panel 01/06/19 Range/Units 02:35 Sodium 140 (136-145) mEq/L Potassium 3.9 (3.5-5.1) mEq/L Chloride 114 H (98-107) mEq/L Carbon Dioxide 21 L (23-29) mEq/L BUN 28 H (8-23) mg/dL Creatinine 1.63 H (0.70-1.30) mg/dL Glucose 104 (70-105) mg/dL Calcium 8.8 (8.6-10.3) mg/dL Adrenal panel 01/06/19 Range/Units 02:35 Sodium 140 (136-145) mEq/L Potassium 3.9 (3.5-5.1) mEq/L Chloride 114 H (98-107) mEq/L Carbon Dioxide 21 L (23-29) mEq/L BUN 28 H (8-23) mg/dL Creatinine 1.63 H (0.70-1.30) mg/dL Glucose 104 (70-105) mg/dL Calcium 8.8 (8.6-10.3) mg/dL Total Bilirubin 0.4 (0.3-1.0) mg/dL AST 10 L (13-39) Units/L ALT 11 (7-52) Units/L Alkaline Phosphatase 53 (34-104) Units/L Albumin 3.3 L (3.5-5.7) g/dL All other labs normal.
--- NOTE | 2019-01-06 10:46 | Event Note ---
Date of Encounter: 01/06/19 Time of Encounter: 10:46 Patient was seen and examined by hospitalist services earlier this morning. I did note that patient is not having any urine draining from his catheter. He states that his leg bag was changed to a gravity. Patient does have tenderness on palpation to pubic area. Ordered bladder scan. Discussed with the patient treatment plan which includes monitoring H&H he may need another transfusion he verbalizes understanding. I did call and speak with urology [facility] concerning no urine output. Awaiting bladder scan results patient may require catheter change.
[2019-01-06 15:48] LABS: Hematocrit 20.4 % (37.5-50.1); Hemoglobin 6.6 g/dL (12.9-16.9)
[2019-01-06 17:45] LABS: Basophils % 0.4 %; Eosinophils # 0.3 K/mcL (0.0-0.6); Eosinophils % 3.1 %; Hematocrit 20.2 % (37.5-50.1); Hemoglobin 6.3 g/dL (12.9-16.9); Immature Granulocytes % 0.2 % (0-4); Lymphocytes # 2.8 K/mcL (0.6-4.6); Lymphocytes % 33.7 %; Mean Corpuscular HGB Conc 31.2 g/dL (31.6-35.5); Mean Corpuscular Hemoglobin 29.3 pg (28.0-33.3); Mean Platelet Volume 9.4 fL (9.4-12.4); Monocytes # 0.6 K/mcL (0.0-1.3); Monocytes % 7.8 %; Neutrophils # 4.5 K/mcL (1.6-8.9); Platelet Count 233 K/mcL (140-400); Red Blood Count 2.15 M/mcL (4.19-5.50); Segmented Neutrophils % 54.8 %; White Blood Count 8.2 K/mcL (4.3-11.1)
[2019-01-06 22:17] LABS: Hematocrit 20.3 % (37.5-50.1); Hemoglobin 6.4 g/dL (12.9-16.9)
[2019-01-07] MEDS: Insulin LISPRO 300 UNITS/3 ML VIAL SQ SCH ×4 (00:57→20:18)
[2019-01-07 03:48] LABS: Bilirubin,Urine Negative (Negative); Blood,Urine Large (Negative); Clarity,Urine Cloudy (Clear); Color,Urine Yellow (Yellow); Glucose,Urine (UA) Normal (Normal); Ketones,Urine Negative (Negative); Leukocyte Esterase,Urine Moderate (Negative); Nitrite,Urine Negative (Negative); Protein,Urine 30 mg/dL (Neg-Trace); Urobilinogen,Urine Normal (Normal)
[2019-01-07 03:50] LABS: Bacteria,Urine Few per hpf (None-Few); Hyaline Casts,Urine None Seen per lpf (None-Few); RBC,Urine TNTC per hpf (0-3); Squamous Epithelial Cell,Urine None Seen per lpf (None-Few); WBC,Urine TNTC per hpf (0-3)
[2019-01-07 05:32] LABS: Hematocrit 26.5 % (37.5-50.1)
[2019-01-07 05:36] LABS: Hemoglobin 8.7 g/dL (12.9-16.9)
[2019-01-07 08:51] LABS: BUN/Creatinine Ratio 16 (6-26); Blood Urea Nitrogen 21 mg/dL (8-23); Calcium 8.6 mg/dL (8.6-10.3); Carbon Dioxide 19 mEq/L (23-29); Chloride 112 mEq/L (98-107); Glucose 102 mg/dL (70-105); Osmolality,Calculated 287 (280-300); Potassium 3.9 mEq/L (3.5-5.1); Sodium 137 mEq/L (136-145); eGFR For African Americans > 60 (> 60); eGFR For Non-African Americans 55 (> 60)
[2019-01-07 11:06] LABS: Hematocrit 26.5 % (37.5-50.1); Hemoglobin 8.8 g/dL (12.9-16.9)
--- NOTE | 2019-01-07 11:39 | Urology Progress Note ---
<Rose Uriostegui N - Last Filed: 01/07/19 11:37> Date of Encounter: 01/07/19 Time of Encounter: 09:30 - Assessment and Plan (1) Hematuria Current Visit: Yes Status: Acute Assessment and plan: Patient is a 68-year-old male who presents with a history of gross hematuria following greenlight PVP in September 2018 and anticoagulation. Patient has been transfused a total of 5 units. Vital signs are currently stable and afebrile. Hemoglobin is improved to 8.8 and hematocrit 26.5. Urine is much improved after withholding anticoagulation. Patient is tentatively planned for a TURP with cauterization of the prostatic fossa tomorrow with Dr. Meehan. Dr. Meehan will be in to reevaluate patient. Qualifiers: Hematuria type: gross Qualified Code(s): R31.0 - Gross hematuria Progress Note Subjective: no new complaints, feels better Narrative: Patient seen and examined sitting upright in bed eating breakfast in no apparent distress. Patient reports he is voiding well without difficulty. Patient has two urine specimens in his room; bedside urinal is transparent, light fruit punch, and specimen cup is transparent, clear yellow. Patient states he strained for bowel movement early this morning and noticed urine color change from light yellow to transparent fruit punch. Objective Initial Vital Signs Temp Pulse Resp BP Pulse Ox 98.1 F 121 15 110/64 100 01/05/19 20:55 01/05/19 20:55 01/05/19 20:55 01/05/19 20:55 01/05/19 20:55 - General physical appearance Present: no distress, no pain - Respiratory Present: normal expansion, normal respiratory effort - Abdomen Present: soft, non tender. Absent: distended - Genitourinary Urine Appearance: Present: Clear, Hematuria. Absent: Sediment, Mucous Threads, Small Blood Clots, Large Blood Clots - Integumentary Present: no rash, no abnormal pigmentation - Musculoskeletal Present: normal posture - Psychiatric Present: oriented to time, oriented to person, oriented to place, speech is normal, memory intact - Labs 01/07/19 10:46 01/07/19 05:10 Diabetes panel 01/07/19 Range/Units 05:10 Sodium 137 (136-145) mEq/L Potassium 3.9 (3.5-5.1) mEq/L Chloride 112 H (98-107) mEq/L Carbon Dioxide 19 L (23-29) mEq/L BUN 21 (8-23) mg/dL Creatinine 1.30 (0.70-1.30) mg/dL Glucose 102 (70-105) mg/dL Calcium 8.6 (8.6-10.3) mg/dL Calcium panel 01/07/19 Range/Units 05:10 Calcium 8.6 (8.6-10.3) mg/dL Pituitary panel 01/07/19 Range/Units 05:10 Sodium 137 (136-145) mEq/L Potassium 3.9 (3.5-5.1) mEq/L Chloride 112 H (98-107) mEq/L Carbon Dioxide 19 L (23-29) mEq/L BUN 21 (8-23) mg/dL Creatinine 1.30 (0.70-1.30) mg/dL Glucose 102 (70-105) mg/dL Calcium 8.6 (8.6-10.3) mg/dL Adrenal panel 01/07/19 Range/Units 05:10 Sodium 137 (136-145) mEq/L Potassium 3.9 (3.5-5.1) mEq/L Chloride 112 H (98-107) mEq/L Carbon Dioxide 19 L (23-29) mEq/L BUN 21 (8-23) mg/dL Creatinine 1.30 (0.70-1.30) mg/dL Glucose 102 (70-105) mg/dL Calcium 8.6 (8.6-10.3) mg/dL Consult Discharge Plan - Plan Referrals: NONE,PCP [Primary Care Provider] - <John Meehan - Last Filed: 01/07/19 16:54> Date of Encounter: 01/07/19 - Assessment and Plan (1) Hematuria Current Visit: Yes Status: Acute Assessment and plan: Patient seen and examined independently. I am in agreement with the assessment and plan as outlined by our Urologic Surgery Department Physician Clay P[place] Setter, [place]. Reviewed risks benefits alternatives of TURP. Patient agrees to proceed tomorrow as scheduled. Qualifiers: Hematuria type: gross Qualified Code(s): R31.0 - Gross hematuria (2) Enlarged prostate with urinary obstruction Current Visit: No Status: Chronic Objective Initial Vital Signs Temp Pulse Resp BP Pulse Ox 98.1 F 121 15 110/64 100 01/05/19 20:55 01/05/19 20:55 01/05/19 20:55 01/05/19 20:55 01/05/19 20:55 - Labs 01/07/19 10:46 01/07/19 05:10 Diabetes panel 01/07/19 Range/Units 05:10 Sodium 137 (136-145) mEq/L Potassium 3.9 (3.5-5.1) mEq/L Chloride 112 H (98-107) mEq/L Carbon Dioxide 19 L (23-29) mEq/L BUN 21 (8-23) mg/dL Creatinine 1.30 (0.70-1.30) mg/dL Glucose 102 (70-105) mg/dL Calcium 8.6 (8.6-10.3) mg/dL Calcium panel 01/07/19 Range/Units 05:10 Calcium 8.6 (8.6-10.3) mg/dL Pituitary panel 01/07/19 Range/Units 05:10 Sodium 137 (136-145) mEq/L Potassium 3.9 (3.5-5.1) mEq/L Chloride 112 H (98-107) mEq/L Carbon Dioxide 19 L (23-29) mEq/L BUN 21 (8-23) mg/dL Creatinine 1.30 (0.70-1.30) mg/dL Glucose 102 (70-105) mg/dL Calcium 8.6 (8.6-10.3) mg/dL Adrenal panel 01/07/19 Range/Units 05:10 Sodium 137 (136-145) mEq/L Potassium 3.9 (3.5-5.1) mEq/L Chloride 112 H (98-107) mEq/L Carbon Dioxide 19 L (23-29) mEq/L BUN 21 (8-23) mg/dL Creatinine 1.30 (0.70-1.30) mg/dL Glucose 102 (70-105) mg/dL Calcium 8.6 (8.6-10.3) mg/dL
--- NOTE | 2019-01-07 15:15 | Electrocardiograph Report ---
[facility] [employer] Test Date: 2019-01-05 Pat Name: Gustavo Az Department: EXAM1 Room: 3B63 Gender: M Half Section Ironer: : 1950 Requested By: Kj Campbell Order Number: [id number] Reading MD: Rosales Lincoln Measurements Intervals [place] Rate: 101 P: 40 MD: 216 QRS: -66 QRSD: 99 T: 63 QT: 348 QTc: 452 Interpretive Statements Sinus tachycardia Prolonged MD interval Left anterior fascicular block Abnormal R-wave progression, early transition Electronically Signed On 01-07-2019 15:13:36 EDT by Rosaels Lincoln
--- NOTE | 2019-01-07 18:18 | Internal Med Progress Note ---
Hospitalist Progress Note - Encounter Date of Encounter: 01/07/19 Time of Encounter: 18:15 - Subjective Interval History: Was seen and examined earlier this morning-patient was asleep and and arouses to verbal stimuli. Noted.urinal next to bed had clear chi colored urine. States he has not had a difficulty urinating. I did review urology's notes it does appear patient is scheduled for TURP with cauterization in the a.m. I did discuss with Dr Lock who is on-call this evening requesting surgical clearance as well as suggestions for antiplatelet therapy. We will consult cardiology for surgical clearance as well as antiplatelet therapy did discuss with Dr. Meehan concerning possibly resuming aspirin since patient did have a recent STEMI-he is in agreement explained that Cardiology will evaluate patient prior to surgery-since he has higher cardiac risk for surgery. Dr. Meehan verbalizes agreement - Exam Vitals: Temp Pulse Resp BP Pulse Ox 98.9 F 75 16 135/88 100 01/07/19 15:38 01/07/19 15:38 01/07/19 15:38 01/07/19 15:38 01/07/19 15:38 Exam: Skin: Free of rash and discoloration. Eyes: Sclera is white. There is no discharge from eyes. ENMT: Oral/pharyngeal mucosa is normal in appearance. There is no discharge from nose or ears. Respiratory: Normal breath sounds with no crackles and wheezes bilaterally. CV: Heart is regular with no gallop or murmur. GI: Abdomen is flat and soft with no palpable mass or visceromegaly. : There is no tenderness in patient's flanks bilaterally. Neuro exam: He has good strength in upper and lower extremities. He has normal eye movements. Psychiatric: He has normal affect. His thought process is appropriate to the situation. - Assessment and Plan (1) Hypertension Current Visit: No Status: Chronic Assessment and Plan: We will continue home medication, adjust high blood pressure regimen if indicated (2) Hypothyroid Current Visit: No Status: Acute Assessment and Plan: We will continue home thyroxine (3) Urinary retention with incomplete bladder emptying Current Visit: No Status: Acute Assessment and Plan: Urology has been consulted for the catheter has been removed and patient has been urinating without any difficulty at this time (4) Enlarged prostate with urinary obstruction Current Visit: No Status: Chronic Assessment and Plan: Fish catheter has been removed-urology has been consulted and appreciate recommendations (5) Hematuria Current Visit: Yes Status: Acute Assessment and Plan: patient status post urologic procedure in November and and has a chronic Fish catheter , the patient reported that since the procedure he has been experiencing gross hematuria. Hematology has seen the patient on the office and will see the patient this a.m. for further evaluation and management 01/07 History of gross hematuria following greenlight PVP in September 2018 and antiplatlets Patient received a total of 5 units PRBCs due to hemoglobin of 4 on presentation currently up to 8.8 Urology consulted anticipating TURP with cauterization of the prostate fossa tomorrow with Dr. Meehan-patient will be evaluated by cardiology-for surgical clearance Holding Plavix however we will resume aspirin (6) Acute on chronic anemia Current Visit: No Status: Acute Assessment and Plan: Most likely secondary to chronic blood loss in the setting of hematuria which was exacerbated by the progressive worsening of herhematuria over the last 3 days, we will continue to transfuse for hemoglobin less than 7 continue to monitor H&H closely. The goals of care is to treat the underlying cause of chronic blood loss 01/07 Hemoglobin 4.3 on presentation required 5 units PRBCs currently 8.8 and stable-n o hematuria noted at this time holding Plavix we will resume aspirin Discussed with cardiology we will consult cardiology for antiplatelet therapy (7) CAD (coronary artery disease) Current Visit: No Status: Acute Assessment and Plan: CAD status post STEMI status post PCI and YEMI as and residual RCA stenosis was on aspirin and Plavix however presented with hemoglobin of 4.3 requiring transfusion of 5 units PRBCs. Presently stable with a hemoglobin 8.8 we will resume aspirin no chest pain or shortness of breath voiced no arrhythmias- continue statin and beta barbara - Time Spent with Patient Total time spent is greater than 50% in coordination of care (as documented) at patient's floor/unit and/or counseling patient: Internal Medicine: Result - Labs CBC & Chem 7: 01/07/19 10:46 01/07/19 05:10 Labs: Short CBC 01/06/19 01/07/19 01/07/19 Range/Units 21:31 05:04 10:46 Hgb 6.4 L 8.7 L D 8.8 L (12.9-16.9) g/dL Hct 20.3 L 26.5 L 26.5 L (37.5-50.1) % BMP 01/07/19 05:10 Sodium 137 Potassium 3.9 Chloride 112 H Carbon Dioxide 19 L BUN 21 Creatinine 1.30 Glucose 102 Calcium 8.6 Urine 01/07/19 Range/Units 03:30 Urine Color Yellow (Yellow) Urine Clarity Cloudy A (Clear) Urine pH 6.0 (5.0-8.0) pH Units Ur Specific [place] 1.010 (1.010-1.025) Urine Protein 30 H (Neg-Trace) mg/dL Urine Glucose (UA) Normal (Normal) mg/dL - ABG Interpretation ABG results: PT/INR, D-dimer PT 11.6 Seconds (9.4-12.1) 01/06/19 02:35 Consult Discharge Plan - Plan Referrals: NONE,PCP [Primary Care Provider] - (1) Hypertension Qualifiers: Hypertension type: essential hypertension Qualified Code(s): I10 - Essential (primary) hypertension (2) Hypothyroid Qualifiers: Hypothyroidism type: unspecified Qualified Code(s): E03.9 - Hypothyroidism, unspecified (5) Hematuria Qualifiers: Hematuria type: gross Qualified Code(s): R31.0 - Gross hematuria (7) CAD (coronary artery disease) Qualifiers: Coronary Disease-Associated Artery/Lesion type: [place] artery [place] vs. transplanted heart: [place] heart Associated angina: without angina Qualified Code(s): I25.10 - Atherosclerotic heart disease of [place] coronary artery without angina pectoris
[2019-01-07 19:02] LABS: Hematocrit 25.5 % (37.5-50.1); Hemoglobin 8.5 g/dL (12.9-16.9)
[2019-01-07] MEDS: Aspirin Enteric Coated 81 MG Tablet PO SCH (20:22)
[2019-01-08 03:32] LABS: BUN/Creatinine Ratio 14 (6-26); Basophils # 0.1 K/mcL (0.0-0.2); Basophils % 0.8 %; Blood Urea Nitrogen 18 mg/dL (8-23); Calcium 8.7 mg/dL (8.6-10.3); Carbon Dioxide 21 mEq/L (23-29); Chloride 110 mEq/L (98-107); Eosinophils # 0.4 K/mcL (0.0-0.6); Eosinophils % 4.3 %; Glucose 95 mg/dL (70-105); Hemoglobin 9.1 g/dL (12.9-16.9); Immature Granulocytes % 0.3 % (0-4); Lymphocytes # 2.5 K/mcL (0.6-4.6); Lymphocytes % 25.4 %; Mean Corpuscular HGB Conc 32.5 g/dL (31.6-35.5); Mean Corpuscular Hemoglobin 28.4 pg (28.0-33.3); Mean Platelet Volume 9.2 fL (9.4-12.4); Monocytes # 0.7 K/mcL (0.0-1.3); Monocytes % 7.5 %; Neutrophils # 6.1 K/mcL (1.6-8.9); Osmolality,Calculated 288 (280-300); Platelet Count 304 K/mcL (140-400); Potassium 3.8 mEq/L (3.5-5.1); Red Cell Distribution Width 16.8 % (11.5-14.5); Segmented Neutrophils % 61.7 %; Sodium 138 mEq/L (136-145); White Blood Count 9.8 K/mcL (4.3-11.1); eGFR For African Americans > 60 (> 60); eGFR For Non-African Americans 58 (> 60)
[2019-01-08 03:56] LABS: Mean Corpuscular Volume 87.5 fL (83.0-100.0)
[2019-01-08] MEDS ORDERED: amLODIPine 5 MG TABLET PO SCH ×2 (09:00→15:30)
[2019-01-08] MEDS ORDERED: ATORVASTATIN CALCIUM 80 MG PO SCH (09:00)
--- NOTE | 2019-01-08 10:58 | Anesthesia Evaluation PreOp ---
Date of Encounter: 01/08/19 Time of Encounter: 12:22 - Past History Planned Operation: redo TURP Cardiac History: HTN, Hyperlipidemia, Cardiac Stent (CINDY mid LAD 07/26/2018), Other (anemia s/p 5 units PRBC. plavix has been held upon admission for 4 days due to severe anemia with on presentation of Hgg 4.3) Pulmonary History: JOANNA Dx UTILITY ARBORIST History: Denies Any Significant HX Other Medical History: Renal (CKD), Diabetes Type II, Thyroid (hypo), Other (hematuria, BPH) Anesthesia History: No Prior Anesthetic Complications, Past Anesthesia (turp, clot evacuation) Alcohol Use: none Drug use: none Medications and Allergies Clopidogrel [Plavix] 75 mg PO DAILY #30 tablet 08/01/18 [Rx] Losartan [Cozaar] 25 mg PO DAILY #30 tablet 08/01/18 [Rx] Metoprolol [Lopressor] 25 mg PO BID #60 tablet 08/01/18 [Rx] amLODIPine [Norvasc] 5 mg PO DAILY #30 tablet 08/01/18 [Rx] Atorvastatin Calcium 80 mg PO DAILY 10/09/18 [History] metFORMIN [Glucophage] 500 mg PO DAILY 10/09/18 [History] Aspirin Enteric Coated [Aspirin EC] 81 mg PO DAILY 11/10/18 [History] Finasteride [Proscar] 5 mg PO DAILY 12/04/18 [History] Ferrous Sulfate 325 mg PO DAILY 01/05/19 [History] Allergy/AdvReac Type Severity Reaction Status Date / Time No Known Allergies Allergy Verified 01/05/19 22:58 - Meds/Allergy Pre-op Review Medications Reviewed: Yes Allergies Reviewed: Yes Beta Blockers on Current Med List: Yes (metoprolol) If Beta Blockers taken, Date/Time (Last Dose taken): 1120 Anesthesia Results - Labs 01/08/19 02:26 01/08/19 02:26 - Imaging EKG: report reviewed (Sinus tachycardia Prolonged UT interval Left anterior fascicular block Abnormal R-wave progression, early transition) Additional studies: 07/2018 echocardiogram Impressions: LVEF 60-65%. Mild segmental left ventricular systolic dysfunction. Mild concentric left ventricular hypertrophy. Indeterminate diastolic function. Normal right ventricular structure and function. No significant valvular dysfunction. Unable to estimate RVSP due to lack of TR jet. 07/2018 CORONARY ANGIOGRAPHY Indications: Worsening Angina, ACS <= 24 hrs Impressions: There is severe one vessel coronary artery disease. Recommendations: Optimal medical therapy of patient's disease. Aggressive risk factor modification. Brilinta BID. Recommended for planned PCI of RCA. Coronary Dominance: right Lesion Findings/Interventions * Left Main Coronary Artery The LMCA is angiographically free of disease. * Left Anterior Descending Patent stent in the mid LAD. There is a 50% stenosis in the Distal LAD. * Circumflex The Circumflex is angiographically free of disease. The 1st Marginal is angiographically free of disease. * Right Coronary Artery There is a 60% stenosis in the Distal RCA. There is a 70% stenosis in the Right PDA. Anesthesia Exam Vital Signs/O2 Sat/Glucose, Most Recent Temp Pulse Resp BP Pulse Ox 98.3 F 80 17 132/80 100 01/08/19 07:32 01/08/19 07:32 01/08/19 07:32 01/08/19 07:32 01/08/19 07:32 Blood Glucose* 100 Weight: 90 kg NPO (# of Hours): > 8 hr - HEENT Pupil (Motor): Pupils equal Mallampati: I Teeth: Poor dentition - UTILITY ARBORIST LOC: Oriented - Cardiac Rhythm: Regular Murmur: None - Pulmonary Breath Sounds: bilateral Clear Respiratory Effort: Symmetrical Anesthesia Assess/Plan ASA Score: 4 Level of consciousness: Cooperative, Oriented Anesthetic Plan: General Monitoring Plan: Standard Monitors Recovery Plan: PACU
--- NOTE | 2019-01-08 11:21 | Cardiology Consult Note ---
<Dennys Olivier P - Last Filed: 01/08/19 12:10> Date of Encounter: 01/08/19 - Attending Attestation Patient seen and examined. OK to proceed with procedure today. No unstable cardiac issues. He is almost 6 months out from violeta placement. He is now off plavix due to high risk bleeding and life threatening anemia. Restart asa and continue to lower the risk for late stent restenosis. Further evaluation of anemia per primary service and other specialists. Assessment and Plan Discussion w patient/family: The assessment and plan as outlined above was discussed with the patient and/or family members who expressed understanding and agreement. All questions were answered. Thank you for involving us in the care of your patient. Please call with any questions. History of Present Illness History of present illness: Mr. Bernardo is a 68 year old male Medications and Allergies Clopidogrel [Plavix] 75 mg PO DAILY #30 tablet 08/01/18 [Rx] Losartan [Cozaar] 25 mg PO DAILY #30 tablet 08/01/18 [Rx] Metoprolol [Lopressor] 25 mg PO BID #60 tablet 08/01/18 [Rx] amLODIPine [Norvasc] 5 mg PO DAILY #30 tablet 08/01/18 [Rx] Atorvastatin Calcium 80 mg PO DAILY 10/09/18 [History] metFORMIN [Glucophage] 500 mg PO DAILY 10/09/18 [History] Aspirin Enteric Coated [Aspirin EC] 81 mg PO DAILY 11/10/18 [History] Finasteride [Proscar] 5 mg PO DAILY 12/04/18 [History] Ferrous Sulfate 325 mg PO DAILY 01/05/19 [History] Allergy/AdvReac Type Severity Reaction Status Date / Time No Known Allergies Allergy Verified 01/05/19 22:58 All Systems Review: The remainder of the systems were reviewed and are negative Physical Examination Vital Signs, Last 4 Hours Temp Pulse Resp BP Pulse Ox 01/08/19 11:06 98.4 F 81 14 141/87 99 Results 01/08/19 02:26 01/08/19 02:26 Lab Results 01/07/19 01/08/19 01/08/19 18:49 02:26 02:26 WBC 9.8 Hgb 8.5 L 9.1 L Hct 25.5 L 28.0 L Plt Count 304 Sodium 138 Potassium 3.8 Chloride 110 H Carbon Dioxide 21 L BUN 18 Creatinine 1.25 Glucose 95 Calcium 8.7 Consult Discharge Plan - Plan Referrals: NONE,PCP [Primary Care Provider] - <Mayi Lora Shari - Last Filed: 01/08/19 12:17> Date of Encounter: 01/08/19 Time of Encounter: 10:00 Assessment and Plan (1) Preoperative cardiovascular examination Current Visit: Yes Status: Acute Preoperative cardiovascular examination prior to TURP under general anesthesia. Indication: gross hematuria with acute anemia (HgB 4.3), s/p 5 units PRBC this admission. Gross hematuria with significant anemia ongoing over the past several months. Hx of anterior STEMI July 26, 2018 s/p PCI with VIOLETA to mLAD, remaining 70% RPAV (medical therapy recommended) with preserved LVEF. Plavix has been held since admission due to significant anemia. Patient has been without chest pain/discomfort. No acute ST/T wave abnormalities on ECG. Given interruption in DAPT within the 1 year, he is at risk of stent thrombosis, pt. aware. Patient is an acceptable moderate risk candidate to proceed with urgent surgical intervention. Pt. verbalized understanding. Discussed and reviewed with Dr. Olivier. Recommend betablocker and continuation of asa in the homar-operative setting. Recommend resuming plavix when able. (2) CAD (coronary artery disease) Current Visit: Yes Status: Acute Qualifiers: Coronary Disease-Associated Artery/Lesion type: koi artery [place] vs. transplanted heart: koi heart Associated angina: without angina Qualified Code(s): I25.10 - Atherosclerotic heart disease of koi coronary artery without angina pectoris Discussion w patient/family: The assessment and plan as outlined above was discussed with the patient and/or family members who expressed understanding and agreement. All questions were answered. Thank you for involving us in the care of your patient. Please call with any questions. The patient will be discussed and reviewed with Dr. Olivier; changes to be made accordingly. History of Present Illness Consult date: 01/08/19 Requesting physician: Concepcion Fisher Consult reason: Preoperative CV examination Chief complaint: Hematuria History of present illness: Mr. Bernardo is a 68 year old male with PMHx significant of HTN, CAD s/p PCI (STEMI 07/2018), and thyroid disease who presented to the ED after being called with abnormal labs at home. He has been closely following Urology in the outpatient setting due to significant hematuria causing anemia. He eron significant chest pain or discomfort. No shortness of breath reported. Prior to ED evaluation, he reports weakness, fatigue, and feeling unsteady. Of note, he has been hospitalized multiple times over the past several months with acute blood loss anemia reportedly related to gross hematuria. Past Med Surg Social Fam HX - Past Medical History Attestation: Yes The following information was validated with the patient. Source: patient Medical history: coronary artery disease, hyperlipidemia, hypertension, myocardial infarction, thyroid disease Additional medical history: snoring, anemia Psychiatric history: no psych history - Past Surgical History Surgical History: angioplasty/stent, knee replacement Additional surgical history: one cardiac stent - Social History Smoking Status: Never smoker Smokeless Tobacco Status: No Alcohol use: none Drug use: none - Family History Mother Living Status: Father Living Status: All Systems Review: The remainder of the systems were reviewed and are negative - Cardiovascular Cardiovascular: as per HPI Physical Examination Vital Signs, Last 4 Hours Temp Pulse Resp BP Pulse Ox 01/08/19 11:06 98.4 F 81 14 141/87 99 01/08/19 07:32 98.3 F 80 17 132/80 100 General: Conversant, No Apparent Distress HEENT: Atraumatic, Normocephaly, Mucus Membranes Moist Neck: No JVD, Normal carotid pulses Cardiac: Reg Rate and Rhythm, Normal S1 and S2, No Murmur Lungs: Normal Breath Sounds, No Wheeze, Rales, Rhonchi Neuro: Alert and responsive, No focal deficits noted Abdomen: Soft, Non-Tender Skin: No rashes noted on visualized skin Musculoskeletal: No Chest Wall Tenderness Extremities: No Clubbing, No Cyanosis, No Edema, Normal Pulses Results 01/08/19 02:26 01/08/19 02:26 Lab Results 01/07/19 01/08/19 01/08/19 18:49 02:26 02:26 WBC 9.8 Hgb 8.5 L 9.1 L Hct 25.5 L 28.0 L Plt Count 304 Sodium 138 Potassium 3.8 Chloride 110 H Carbon Dioxide 21 L BUN 18 Creatinine 1.25 Glucose 95 Calcium 8.7 Active Medications Aspirin (Aspirin Ec) 81 mg PO DAILY RICHY Stop: 07/09/19 18:31 Last Admin: 01/08/19 11:37 Dose: Not Given Documented by: Atorvastatin Calcium (Lipitor) 80 mg PO HS RICHY Stop: 07/09/19 21:01 Last Admin: 01/07/19 20:22 Dose: 80 mg Documented by: Dextrose/Water (Dextrose 50% (Syg)) 25 ml IVP AD PRN PRN Reason: Hypoglycemia Stop: 07/08/19 01:17 Ferrous Sulfate (Ferrous Sulfate) 325 mg PO DAILY [facility] TO [facility] Stop: 07/10/19 09:01 Last Admin: 01/08/19 11:38 Dose: Not Given Documented by: Glucagon (Glucagen) 1 mg IM ONCE PRN PRN Reason: Hypoglycemia Stop: 07/08/19 01:17 Glucose (Gluctose) 15 gm PO ONCE PRN PRN Reason: Hypoglycemia Stop: 07/08/19 01:17 Glucose (Gluctose) 30 gm PO ONCE PRN PRN Reason: Hypoglycemia Stop: 07/08/19 01:17 Dextrose (Dextrose 5%) 1,000 mls @ 100 mls/hr IVC .Q10H PRN PRN Reason: HYPOGLYCEMIA Stop: 07/08/19 01:17 Insulin Human Lispro (Humalog) 0 units SQ [facility]; Protocol Stop: 07/08/19 21:01 Last Admin: 01/07/19 20:18 Dose: Not Given Documented by: Insulin Human Lispro (Humalog) 0 units SQ TIDAC PENDING SALE TO [facility]; Protocol Stop: 07/08/19 07:31 Last Admin: 01/08/19 11:37 Dose: Not Given Documented by: Metoprolol Tartrate (Lopressor) 25 mg PO BID PENDING S[facility] TO [facility] Stop: 07/09/19 21:01 Last Admin: 01/08/19 11:20 Dose: 25 mg Documented by: Naloxone HCl (Narcan) 0.4 mg IVP Q2MPRN PRN PRN Reason: SEE COMMENTS Stop: 07/08/19 01:00 Ondansetron HCl (Zofran) 4 mg IVP Q8HR PRN PRN Reason: Nausea And Vomiting Stop: 07/08/19 01:05 - Imaging and Cardiology Echo: report reviewed Cardiac cath: report reviewed - EKG Interpretation EKG results cardiology: personally reviewed
[2019-01-08] MEDS: Insulin LISPRO 300 UNITS/3 ML VIAL SQ SCH ×4 (11:37→20:13)
[2019-01-08] MEDS: Aspirin Enteric Coated 81 MG Tablet PO SCH (11:37)
[2019-01-08] MEDS ORDERED: Dexamethasone 4 MG/ML VIAL ONE (12:17)
[2019-01-08] MEDS ORDERED: *HR* Propofol 200 MG/20 ML VIAL IVP ONE ×2 (12:17→13:18)
[2019-01-08] MEDS ORDERED: *HR* Midazolam HCl 2 MG/2 ML VIAL ONE (12:17)
[2019-01-08] MEDS ORDERED: *HR* FentaNYL (PF) 100 MCG/2 ML VIAL ONE ×3 (12:17→13:20)
[2019-01-08] MEDS ORDERED: Ondansetron 4 MG/2 ML VIAL ONE (12:17)
[2019-01-08] MEDS ORDERED: *HR* PHENYLEPHRINE 1,000 MCG/10 ML SYRINGE IVP ONE (13:01)
--- NOTE | 2019-01-08 13:42 | Urology Progress Note ---
<Rose Uriostegui N - Last Filed: 01/08/19 13:40> Date of Encounter: 01/08/19 Time of Encounter: 10:40 - Assessment and Plan (1) Hematuria Current Visit: Yes Status: Acute Assessment and plan: Patient is a 68-year-old male who presents with a history of gross hematuria following initial greenlight PVP in September 2018 and anticoagulation. Vital signs are currently stable and afebrile. Hemoglobin appears to be stabilized. Patient has undergone cardiac clearance for surgery, and he has remained nothing by mouth after midnight. Patient has no additional questions or concerns, and he is anticipating transurethral resection of prostate with Dr. Meehan. Qualifiers: Hematuria type: gross Qualified Code(s): R31.0 - Gross hematuria Objective Initial Vital Signs Temp Pulse Resp BP Pulse Ox 98.1 F 121 15 110/64 100 01/05/19 20:55 01/05/19 20:55 01/05/19 20:55 01/05/19 20:55 01/05/19 20:55 - General physical appearance Present: no distress, no pain - Respiratory Present: normal expansion, normal respiratory effort - Abdomen Present: soft, non tender. Absent: distended - Genitourinary Urine Appearance: Present: Clear. Absent: Sediment, Purulent, Hematuria, Small Blood Clots, Large Blood Clots - Integumentary Present: no rash, no abnormal pigmentation - Musculoskeletal Present: normal posture - Psychiatric Present: oriented to time, oriented to person, oriented to place, speech is normal, memory intact - Labs 01/08/19 02:26 01/08/19 02:26 Diabetes panel 01/08/19 Range/Units 02:26 Sodium 138 (136-145) mEq/L Potassium 3.8 (3.5-5.1) mEq/L Chloride 110 H (98-107) mEq/L Carbon Dioxide 21 L (23-29) mEq/L BUN 18 (8-23) mg/dL Creatinine 1.25 (0.70-1.30) mg/dL Glucose 95 (70-105) mg/dL Calcium 8.7 (8.6-10.3) mg/dL Calcium panel 01/08/19 Range/Units 02:26 Calcium 8.7 (8.6-10.3) mg/dL Pituitary panel 01/08/19 Range/Units 02:26 Sodium 138 (136-145) mEq/L Potassium 3.8 (3.5-5.1) mEq/L Chloride 110 H (98-107) mEq/L Carbon Dioxide 21 L (23-29) mEq/L BUN 18 (8-23) mg/dL Creatinine 1.25 (0.70-1.30) mg/dL Glucose 95 (70-105) mg/dL Calcium 8.7 (8.6-10.3) mg/dL Adrenal panel 01/08/19 Range/Units 02:26 Sodium 138 (136-145) mEq/L Potassium 3.8 (3.5-5.1) mEq/L Chloride 110 H (98-107) mEq/L Carbon Dioxide 21 L (23-29) mEq/L BUN 18 (8-23) mg/dL Creatinine 1.25 (0.70-1.30) mg/dL Glucose 95 (70-105) mg/dL Calcium 8.7 (8.6-10.3) mg/dL Consult Discharge Plan - Plan Referrals: NONE,PCP [Primary Care Provider] - <John Meehan - Last Filed: 01/08/19 14:02> Date of Encounter: 01/08/19 - Assessment and Plan (1) Hematuria Current Visit: Yes Status: Acute Assessment and plan: Patient seen and examined independently. I am in agreement with the assessment and plan as outlined by our Urologic Surgery Department Physician Blind Teacher, Gila. Reviewed risks benefits alternatives of treatment with resection of prostate. Patient agrees to proceed. Qualifiers: Hematuria type: gross Qualified Code(s): R31.0 - Gross hematuria (2) Enlarged prostate with urinary obstruction Current Visit: No Status: Chronic Objective Initial Vital Signs Temp Pulse Resp BP Pulse Ox 98.1 F 121 15 110/64 100 01/05/19 20:55 01/05/19 20:55 01/05/19 20:55 01/05/19 20:55 01/05/19 20:55 - Labs 01/08/19 02:26 01/08/19 02:26 Diabetes panel 01/08/19 Range/Units 02:26 Sodium 138 (136-145) mEq/L Potassium 3.8 (3.5-5.1) mEq/L Chloride 110 H (98-107) mEq/L Carbon Dioxide 21 L (23-29) mEq/L BUN 18 (8-23) mg/dL Creatinine 1.25 (0.70-1.30) mg/dL Glucose 95 (70-105) mg/dL Calcium 8.7 (8.6-10.3) mg/dL Calcium panel 01/08/19 Range/Units 02:26 Calcium 8.7 (8.6-10.3) mg/dL Pituitary panel 01/08/19 Range/Units 02:26 Sodium 138 (136-145) mEq/L Potassium 3.8 (3.5-5.1) mEq/L Chloride 110 H (98-107) mEq/L Carbon Dioxide 21 L (23-29) mEq/L BUN 18 (8-23) mg/dL Creatinine 1.25 (0.70-1.30) mg/dL Glucose 95 (70-105) mg/dL Calcium 8.7 (8.6-10.3) mg/dL Adrenal panel 01/08/19 Range/Units 02:26 Sodium 138 (136-145) mEq/L Potassium 3.8 (3.5-5.1) mEq/L Chloride 110 H (98-107) mEq/L Carbon Dioxide 21 L (23-29) mEq/L BUN 18 (8-23) mg/dL Creatinine 1.25 (0.70-1.30) mg/dL Glucose 95 (70-105) mg/dL Calcium 8.7 (8.6-10.3) mg/dL
--- NOTE | 2019-01-08 14:09 | Operative Note ---
Date of procedure: 01/08/19 Pre-op diagnosis: BPH, gross hematuria Post-op diagnosis: same Procedure: Redo transurethral resection of prostate Implants: 22-[place] three-way Fish Complications: None Anesthesia: RIAZA Surgeon: John Meehan Was there an manufacturing assistant present: No Estimated blood loss (cc): 30 Specimen: Prostate chips Condition: stable Disposition: PACU Procedure in Detail: 68-year-old left anterior tissue was taken down with fourth admission for hemodynamic significant gross hematuria post laser vapors prostate in September of this year. The patient is on anticoagulation. The patient's hematuria this time was life-threatening as he presented with a hemoglobin of 4.3 and 16. After discussed risks versus alternatives the patient elects for transurethral resection of poorly healing post PVP prosthetic fossa in an attempt to resolve repeated hemodynamically significant and life-threatening episodes of hematuria. The patient brought the operating theater placed on table supine position. Is identified by name date of and administered a general anesthetic. The patient was dorsal lithotomy then prepped with sterile fashion. The cystoscope was inserted urethral meatus and advanced with the bladder under direct visualization. There were no mucosal outpouchings the bladder. On inspection of the prostate approximately 85% the prostate was removed mucosal eyes. There were patchy areas of slough and nonhealing. The bladder neck was edematous. Using a resecting loop median lobe was taken down. Floor tissue in bilateral lobes were taken down. Sniffing amount of left anterior tissue was taken down. Apical prostate resected up to the midportion of the verumontanum. Care was taken administered verumontanum at all times maintain resection up to but not distal to this landmark. At the end of resection there is inspected and fulgurated to obtain adequate hemostasis. Chips were Ellik free from the bladder. A 22-[place] three-way Fish catheter was placed and this ended the operative procedure. There were no palpitations. Given the patient's presentation with life-threatening materia and anemia, need for antiplatelet regulation management, irregular nonhealing post PEG prosthetic fossa, the procedure was complicated with decreased overall intensity. This extended time of resection and extensive fulguration by 25%.
--- NOTE | 2019-01-08 14:52 | Anesthesia Evaluation Post Op ---
Date of Encounter: 01/08/19 Time of Encounter: 14:52 - Vital Signs Vital Signs: Vital Signs/O2 Sat, Most Current Temp Pulse Resp BP Pulse Ox 98.0 F 63 16 127/89 99 01/08/19 14:44 01/08/19 14:44 01/08/19 14:44 01/08/19 14:44 01/08/19 14:44 - Lungs Lungs: Clear Ascult./Percussion - Airway Airway: Non-obstructed - Cardiovascular Regular Rate - Mental Status Mental Status: Alert & Oriented, Answers Appropriately - Pain Pain Scale: 0 Pain Scale used: Numeric (1 - 10) - Nausea Vomiting Nausea Vomiting: Not Present - Hydration Hydration: NPO, Fish catheter - Discharge PostOp Status: Transfer Patient to floor
--- NOTE | 2019-01-08 15:27 | Internal Med Progress Note ---
Hospitalist Progress Note - Encounter Date of Encounter: 01/08/19 Time of Encounter: 15:24 - Subjective Interval History: Patient was seen and examined earlier this morning-he is to undergo a TURP per urology. Currently his hemoglobin is stable and does not have any more hematuria. Cardiology consulted for cardiac clearance. Patient currently denies any chest pain or shortness of breath - Exam Vitals: Temp Pulse Resp BP Pulse Ox 98.0 F 59 16 153/93 96 01/08/19 14:54 01/08/19 14:54 01/08/19 14:54 01/08/19 14:54 01/08/19 14:54 Exam: Skin: Free of rash and discoloration. Eyes: Sclera is white. There is no discharge from eyes. ENMT: Oral/pharyngeal mucosa is normal in appearance. There is no discharge from nose or ears. Respiratory: Normal breath sounds with no crackles and wheezes bilaterally. CV: Heart is regular with no gallop or murmur. GI: Abdomen is flat and soft with no palpable mass or visceromegaly. : There is no tenderness in patient's flanks bilaterally. Neuro exam: He has good strength in upper and lower extremities. He has normal eye movements. Psychiatric: He has normal affect. His thought process is appropriate to the situation. - Assessment and Plan (1) Hypertension Current Visit: No Status: Chronic Assessment and Plan: We will continue home medication, adjust high blood pressure regimen if indicated (2) Hypothyroid Current Visit: No Status: Acute Assessment and Plan: We will continue home thyroxine (3) Urinary retention with incomplete bladder emptying Current Visit: No Status: Acute Assessment and Plan: Urology has been consulted for the catheter has been removed and patient has been urinating without any difficulty at this time (4) Enlarged prostate with urinary obstruction Current Visit: No Status: Chronic Assessment and Plan: Fish catheter has been removed-urology has been consulted and appreciate recommendations (5) Hematuria Current Visit: Yes Status: Acute Assessment and Plan: patient status post urologic procedure in November and and has a chronic Fish catheter , the patient reported that since the procedure he has been experiencing gross hematuria. Hematology has seen the patient on the office and will see the patient this a.m. for further evaluation and management 01/07 History of gross hematuria following greenlight PVP in September 2018 and antiplatlets Patient received a total of 5 units PRBCs due to hemoglobin of 4 on presentation currently up to 8.8 Urology consulted anticipating TURP with cauterization of the prostate fossa tomorrow with Dr. Meehan-patient will be evaluated by cardiology-for surgical clearance Holding Plavix however we will resume aspirin 01/08 History of gross hematuria following greenlight PVP in September 2018 and antiplatlets Patient received a total of 5 units PRBCs due to hemoglobin of 4 on presentation currently up to 8.8 TURP with cauterization of the prostate fossa today with Dr. Meehan-patient will be evaluated by cardiology-for surgical clearance Holding Plavix however we will resume aspirin (6) Acute on chronic anemia Current Visit: No Status: Acute Assessment and Plan: Most likely secondary to chronic blood loss in the setting of hematuria which was exacerbated by the progressive worsening of herhematuria over the last 3 days, we will continue to transfuse for hemoglobin less than 7 continue to monitor H&H closely. The goals of care is to treat the underlying cause of chronic blood loss 01/07 Hemoglobin 4.3 on presentation required 5 units PRBCs currently 8.8 and stable- no hematuria noted at this time holding Plavix we will resume aspirin Discussed with cardiology we will consult cardiology for antiplatelet therapy 01/08 Hemoglobin 4.3 on presentation 01/06 required 5 units PRBCs currently 9.1 and stable-no hematuria noted at this time holding Plavix we will resume aspirin Discussed with cardiology we will consult cardiology for antiplatelet therapy (7) CAD (coronary artery disease) Current Visit: Yes Status: Acute Assessment and Plan: CAD status post STEMI status post PCI and YEMI as and residual RCA stenosis was on aspirin and Plavix however presented with hemoglobin of 4.3 requiring transfusion of 5 units PRBCs. Presently stable with a hemoglobin 9.1 we will resume aspirin no chest pain or shortness of breath voiced no arrhythmias- continue statin and beta barbara - Time Spent with Patient Total time spent is greater than 50% in coordination of care (as documented) at patient's floor/unit and/or counseling patient: Internal Medicine: Result - Labs CBC & Chem 7: 01/08/19 02:26 01/08/19 02:26 Labs: Short CBC 01/07/19 01/08/19 Range/Units 18:49 02:26 WBC 9.8 (4.3-11.1) K/mcL Hgb 8.5 L 9.1 L (12.9-16.9) g/dL Hct 25.5 L 28.0 L (37.5-50.1) % Plt Count 304 (140-400) K/mcL Neutrophils # 6.1 (1.6-8.9) K/mcL BMP 01/08/19 02:26 Sodium 138 Potassium 3.8 Chloride 110 H Carbon Dioxide 21 L BUN 18 Creatinine 1.25 Glucose 95 Calcium 8.7 - ABG Interpretation ABG results: PT/INR, D-dimer PT 11.6 Seconds (9.4-12.1) 01/06/19 02:35 Consult Discharge Plan - Plan Referrals: NONE,PCP [Primary Care Provider] - (1) Hypertension Qualifiers: Hypertension type: essential hypertension Qualified Code(s): I10 - Essential (primary) hypertension (2) Hypothyroid Qualifiers: Hypothyroidism type: unspecified Qualified Code(s): E03.9 - Hypothyroidism, unspecified (5) Hematuria Qualifiers: Hematuria type: gross Qualified Code(s): R31.0 - Gross hematuria (7) CAD (coronary artery disease) Qualifiers: Coronary Disease-Associated Artery/Lesion type: [place] artery [place] vs. transplanted heart: [place] heart Associated angina: without angina Qualified Code(s): I25.10 - Atherosclerotic heart disease of [place] coronary artery without angina pectoris
[2019-01-08] MEDS ORDERED: Dextrose Gel 15 GM/37.5 ML TUBE PO PRN ×2 (15:41)
[2019-01-08] MEDS ORDERED: Naloxone 0.4 MG/ML INJ IVP PRN (15:41)
[2019-01-08] MEDS ORDERED: *HR* Dextrose 50 % in Water (Syg) 50 ML SYRINGE IVP PRN (15:41)
[2019-01-08] MEDS ORDERED: Ondansetron 4 MG/2 ML VIAL IVP PRN (15:41)
[2019-01-08] MEDS ORDERED: D5% in Water 1,000 ML IVC PRN (15:41)
[2019-01-09] MEDS: Aspirin Enteric Coated 81 MG Tablet PO SCH (08:49)
[2019-01-09] MEDS: Insulin LISPRO 300 UNITS/3 ML VIAL SQ SCH ×4 (08:49→21:32)
[2019-01-09] MEDS ORDERED: Linezolid 600 MG TABLET PO SCH (09:00)
--- NOTE | 2019-01-09 09:17 | Internal Med Progress Note ---
Hospitalist Progress Note - Encounter Date of Encounter: 01/09/19 Time of Encounter: 09:00 - Subjective Interval History: Patient was seen and examined at bedside appears to be doing well eating breakfast denies any pain or discomfort catheter draining without difficulty with yaneli aid colored urine - Exam Vitals: Temp Pulse Resp BP Pulse Ox 98.2 F 69 17 143/87 100 01/09/19 07:27 01/09/19 07:27 01/09/19 07:27 01/09/19 07:27 01/09/19 07:27 Exam: Skin: Free of rash and discoloration. Eyes: Sclera is white. There is no discharge from eyes. ENMT: Oral/pharyngeal mucosa is normal in appearance. There is no discharge from nose or ears. Respiratory: Normal breath sounds with no crackles and wheezes bilaterally. CV: Heart is regular with no gallop or murmur. GI: Abdomen is flat and soft with no palpable mass or visceromegaly. : There is no tenderness in patient's flanks bilaterally. Neuro exam: He has good strength in upper and lower extremities. He has normal eye movements. Psychiatric: He has normal affect. His thought process is appropriate to the situation. - Assessment and Plan (1) Hypertension Current Visit: No Status: Chronic Assessment and Plan: We will continue home medication, adjust high blood pressure regimen if indicated (2) Hypothyroid Current Visit: No Status: Acute Assessment and Plan: We will continue home thyroxine (3) Urinary retention with incomplete bladder emptying Current Visit: No Status: Acute Assessment and Plan: Urology has been consulted and place at this time status post TURP (4) Enlarged prostate with urinary obstruction Current Visit: No Status: Chronic Assessment and Plan: Oley in place status post TURP neurology consulted and appreciate recommendations (5) Hematuria Current Visit: Yes Status: Acute Assessment and Plan: patient status post urologic procedure in November and and has a chronic Fish catheter , the patient reported that since the procedure he has been experiencing gross hematuria. Hematology has seen the patient on the office and will see the patient this a.m. for further evaluation and management 01/07 History of gross hematuria following greenlight PVP in September 2018 and antiplatlets Patient received a total of 5 units PRBCs due to hemoglobin of 4 on presentation currently up to 8.8 Urology consulted anticipating TURP with cauterization of the prostate fossa tomorrow with Dr. Meehan-patient will be evaluated by cardiology-for surgical clearance Holding Plavix however we will resume aspirin 01/08 History of gross hematuria following greenlight PVP in September 2018 and antiplatlets Patient received a total of 5 units PRBCs 01/06/ due to hemoglobin of 4 on presentation currently up to 8.8 TURP with cauterization of the prostate fossa today with Dr. Meehan-patient will be evaluated by cardiology-for surgical clearance Holding Plavix however we will resume aspirin 01/09 History of gross hematuria following greenlight PVP in September 2018 and antiplatelets Patient received a total of 5 units PRBCs due to hemoglobin of 4 on presentation currently up to 8.8 TURP with cauterization of the prostate fossa postop day [address] Meehan Holding Plavix however we will resume aspirin-we will discuss with urology concerning when Plavix can be resumed-cardiology advising patient placed back on Plavix (6) Acute on chronic anemia Current Visit: No Status: Acute Assessment and Plan: Most likely secondary to chronic blood loss in the setting of hematuria which was exacerbated by the progressive worsening of herhematuria over the last 3 days, we will continue to transfuse for hemoglobin less than 7 continue to monitor H&H closely. The goals of care is to treat the underlying cause of chronic blood loss 01/07 Hemoglobin 4.3 on presentation required 5 units PRBCs currently 8.8 and stable- no hematuria noted at this time holding Plavix we will resume aspirin Discussed with cardiology we will consult cardiology for antiplatelet therapy 01/08 Hemoglobin 4.3 on presentation 01/06 required 5 units PRBCs currently 9.1 and stable-no hematuria noted at this time holding Plavix we will resume aspirin Discussed with cardiology we will consult cardiology for antiplatelet therapy 01/09 Hemoglobin stable today at 9 We will need to discuss with urology when patient can resume Plavix continue to monitor H&H continued aspirin (7) CAD (coronary artery disease) Current Visit: Yes Status: Acute Assessment and Plan: CAD status post STEMI status post PCI and YEMI as and residual RCA stenosis was on aspirin and Plavix however presented with hemoglobin of 4.3 requiring transfusion of 5 units PRBCs. Presently stable with a hemoglobin 9.0 we will resume aspirin no chest pain or shortness of breath voiced no arrhythmias- continue statin and beta barbara-we will need to discuss with urology when patient can resume Plavix (8) UTI (urinary tract infection) Current Visit: Yes Status: Acute Assessment and Plan: Patient does have moderate leuk site esterase as well as WBCs and some bacteria- culture did grow Enterococcus faecalis we will place on ampicillin since then sensitive he does have a white count but no fever we will monitor closely- status post TURP - Time Spent with Patient Total time spent is greater than 50% in coordination of care (as documented) at patient's floor/unit and/or counseling patient: Internal Medicine: Result - Labs CBC & Chem 7: 01/09/19 10:13 01/09/19 10:13 - ABG Interpretation ABG results: PT/INR, D-dimer PT 11.6 Seconds (9.4-12.1) 01/06/19 02:35 Consult Discharge Plan - Plan Referrals: NONE,PCP [Primary Care Provider] - (1) Hypertension Qualifiers: Hypertension type: essential hypertension Qualified Code(s): I10 - Essential (primary) hypertension (2) Hypothyroid Qualifiers: Hypothyroidism type: unspecified Qualified Code(s): E03.9 - Hypothyroidism, unspecified (5) Hematuria Qualifiers: Hematuria type: gross Qualified Code(s): R31.0 - Gross hematuria (7) CAD (coronary artery disease) Qualifiers: Coronary Disease-Associated Artery/Lesion type: [place] artery [place] vs. transplanted heart: [place] heart Associated angina: without angina Qualified Code(s): I25.10 - Atherosclerotic heart disease of [place] coronary artery without angina pectoris (8) UTI (urinary tract infection) Qualifiers: Urinary tract infection type: acute cystitis Hematuria presence: with hematuria Qualified Code(s): N30.01 - Acute cystitis with hematuria
[2019-01-09 10:41] LABS: Basophils # 0.1 K/mcL (0.0-0.2); Basophils % 0.4 %; Eosinophils # 0.1 K/mcL (0.0-0.6); Eosinophils % 0.7 %; Hematocrit 28.5 % (37.5-50.1); Immature Granulocytes % 0.4 % (0-4); Lymphocytes # 2.9 K/mcL (0.6-4.6); Mean Corpuscular HGB Conc 31.6 g/dL (31.6-35.5); Mean Corpuscular Hemoglobin 28.4 pg (28.0-33.3); Mean Corpuscular Volume 89.9 fL (83.0-100.0); Mean Platelet Volume 9.1 fL (9.4-12.4); Monocytes % 7.1 %; Neutrophils # 9.9 K/mcL (1.6-8.9); Platelet Count 333 K/mcL (140-400); Red Blood Count 3.17 M/mcL (4.19-5.50); Red Cell Distribution Width 15.9 % (11.5-14.5); Segmented Neutrophils % 70.4 %
--- NOTE | 2019-01-09 10:42 | Urology Progress Note ---
Date of Encounter: 01/09/19 Time of Encounter: 10:40 - Assessment and Plan (1) Hematuria Current Visit: Yes Status: Acute Assessment and plan: Doing well status post transurethral resection of prostate on 01/08/2019. Urine Paul-Aid colored with minimal CBI. Hemoglobin and hematocrit remained stable. Plan: Ambulate this morning. Discontinue Fish and CBI if urine Paul-Aid color or better post ambulation. Observe spontaneous voiding for level of hematuria over the next 24 hours without Fish catheter in place. Home tomorrow if patient remains without significant hematuria. Qualifiers: Hematuria type: gross Qualified Code(s): R31.0 - Gross hematuria (2) Enlarged prostate with urinary obstruction Current Visit: No Status: Chronic Progress Note Subjective: no new complaints Objective Initial Vital Signs Temp Pulse Resp BP Pulse Ox 98.1 F 121 15 110/64 100 01/05/19 20:55 01/05/19 20:55 01/05/19 20:55 01/05/19 20:55 01/05/19 20:55 - General physical appearance Present: no distress - Respiratory Present: normal respiratory effort - Abdomen Present: soft - Integumentary Present: no rash, no growths, no abnormal pigmentation - Musculoskeletal Present: normal posture - Psychiatric Present: oriented to time, oriented to person, oriented to place - Labs 01/08/19 02:26 01/08/19 02:26 Consult Discharge Plan - Plan Referrals: NONE,PCP [Primary Care Provider] -
[2019-01-09 10:58] LABS: BUN/Creatinine Ratio 16 (6-26); Blood Urea Nitrogen 21 mg/dL (8-23); Calcium 8.8 mg/dL (8.6-10.3); Carbon Dioxide 22 mEq/L (23-29); Chloride 107 mEq/L (98-107); Glucose 116 mg/dL (70-105); Osmolality,Calculated 284 (280-300); Potassium 3.4 mEq/L (3.5-5.1); Sodium 135 mEq/L (136-145); eGFR For African Americans > 60 (> 60); eGFR For Non-African Americans 53 (> 60)
[2019-01-09] MEDS: Ampicillin 2 GM in 0.9 % Sodium Chloride Mini Bag 100 ML IVPB SCH ×2 (13:06→21:31)
[2019-01-10] MEDS: Ampicillin 2 GM in 0.9 % Sodium Chloride Mini Bag 100 ML IVPB SCH (04:35)
[2019-01-10 05:03] LABS: Basophils # 0.1 K/mcL (0.0-0.2); Basophils % 0.7 %; Eosinophils # 0.6 K/mcL (0.0-0.6); Eosinophils % 5.9 %; Hematocrit 27.4 % (37.5-50.1); Hemoglobin 8.8 g/dL (12.9-16.9); Immature Granulocytes % 0.2 % (0-4); Lymphocytes # 3.1 K/mcL (0.6-4.6); Lymphocytes % 28.9 %; Mean Corpuscular HGB Conc 32.1 g/dL (31.6-35.5); Mean Corpuscular Hemoglobin 29.4 pg (28.0-33.3); Mean Corpuscular Volume 91.6 fL (83.0-100.0); Mean Platelet Volume 9.1 fL (9.4-12.4); Monocytes # 0.8 K/mcL (0.0-1.3); Neutrophils # 6.2 K/mcL (1.6-8.9); Platelet Count 311 K/mcL (140-400); Red Blood Count 2.99 M/mcL (4.19-5.50); Segmented Neutrophils % 57.3 %; White Blood Count 10.9 K/mcL (4.3-11.1)
[2019-01-10 05:20] LABS: Calcium 8.5 mg/dL (8.6-10.3); Potassium 4.1 mEq/L (3.5-5.1)
[2019-01-10] MEDS: Insulin LISPRO 300 UNITS/3 ML VIAL SQ SCH ×2 (07:53→11:43)
[2019-01-10] MEDS ORDERED: 0.9 % Sodium Chloride 1,000 ML IVC SCH (08:45)
[2019-01-10] MEDS ORDERED: 0.9 % Sodium Chloride 1,000 ML ONE (09:40)
[2019-01-10] MEDS: Aspirin Enteric Coated 81 MG Tablet PO SCH (09:55)
--- NOTE | 2019-01-10 10:39 | Urology Progress Note ---
Date of Encounter: 01/10/19 Time of Encounter: 10:38 - Assessment and Plan (1) Hematuria Current Visit: Yes Status: Acute Assessment and plan: H&H stable. Urine stained/old blood color. No active bleeding identified. Plan: Okay to discharge him home from urology standpoint. Home on aspirin. Resume Plavix in 72 hours. My office will arrange outpatient follow-up with me in 2 weeks. Qualifiers: Hematuria type: gross Qualified Code(s): R31.0 - Gross hematuria (2) Enlarged prostate with urinary obstruction Current Visit: No Status: Chronic Progress Note Subjective: no new complaints Objective Initial Vital Signs Temp Pulse Resp BP Pulse Ox 98.1 F 121 15 110/64 100 01/05/19 20:55 01/05/19 20:55 01/05/19 20:55 01/05/19 20:55 01/05/19 20:55 - General physical appearance Present: well developed, well nourished, no distress - Integumentary Present: no rash, no growths - Musculoskeletal Present: normal posture - Psychiatric Present: oriented to time, oriented to person, oriented to place - Labs 01/10/19 04:21 01/10/19 04:21 Diabetes panel 01/09/19 01/10/19 Range/Units 10:13 04:21 Sodium 135 L 138 (136-145) mEq/L Potassium 3.4 L 4.1 (3.5-5.1) mEq/L Chloride 107 107 (98-107) mEq/L Carbon Dioxide 22 L 21 L (23-29) mEq/L BUN 21 31 H (8-23) mg/dL Creatinine 1.35 H 1.47 H (0.70-1.30) mg/dL Glucose 116 H 97 (70-105) mg/dL Calcium 8.8 8.5 L (8.6-10.3) mg/dL Calcium panel 01/09/19 01/10/19 Range/Units 10:13 04:21 Calcium 8.8 8.5 L (8.6-10.3) mg/dL Pituitary panel 01/09/19 01/10/19 Range/Units 10:13 04:21 Sodium 135 L 138 (136-145) mEq/L Potassium 3.4 L 4.1 (3.5-5.1) mEq/L Chloride 107 107 (98-107) mEq/L Carbon Dioxide 22 L 21 L (23-29) mEq/L BUN 21 31 H (8-23) mg/dL Creatinine 1.35 H 1.47 H (0.70-1.30) mg/dL Glucose 116 H 97 (70-105) mg/dL Calcium 8.8 8.5 L (8.6-10.3) mg/dL Adrenal panel 01/09/19 01/10/19 Range/Units 10:13 04:21 Sodium 135 L 138 (136-145) mEq/L Potassium 3.4 L 4.1 (3.5-5.1) mEq/L Chloride 107 107 (98-107) mEq/L Carbon Dioxide 22 L 21 L (23-29) mEq/L BUN 21 31 H (8-23) mg/dL Creatinine 1.35 H 1.47 H (0.70-1.30) mg/dL Glucose 116 H 97 (70-105) mg/dL Calcium 8.8 8.5 L (8.6-10.3) mg/dL Consult Discharge Plan - Plan Referrals: NONE,PCP [Primary Care Provider] -
[2019-01-10 10:56] VITALS: BP 111/72
--- NOTE | 2019-01-10 12:47 | Discharge Summary ---
- NOTES TO OUTPATIENT PROVIDER Notes to Outpatient Provider: - Anemia- required 5 units PRBCs for hemoglobin of 4-continue to monitor as patient is on antiplatelets. -Patient will resume Plavix 01/14/2019 cont ASA. -Placed on Augmentin for E faecalis- in urine. - Follow up with urology Orders not resulted at time of discharge: Pending orders 01/08/19 14:03 Surgical Pathology [PTH] Routine Date of Encounter: 01/10/19 Time of Encounter: 12:32 - Discharge Diagnosis (1) Hypertension Priority: Secondary Status: Chronic Qualifiers: Hypertension type: essential hypertension Qualified Code(s): I10 - Essential (primary) hypertension (2) Hypothyroid Priority: Secondary Status: Acute Qualifiers: Hypothyroidism type: unspecified Qualified Code(s): E03.9 - Hypothyroidism, unspecified (3) Urinary retention with incomplete bladder emptying Priority: Secondary Status: Acute (4) Enlarged prostate with urinary obstruction Priority: Secondary Status: Chronic (5) Hematuria Priority: Primary Status: Acute Qualifiers: Hematuria type: gross Qualified Code(s): R31.0 - Gross hematuria (6) Acute on chronic anemia Priority: Primary Status: Acute (7) CAD (coronary artery disease) Priority: Secondary Status: Acute Qualifiers: Coronary Disease-Associated Artery/Lesion type: [place] artery [place] vs. transplanted heart: [place] heart Associated angina: without angina Qualified Code(s): I25.10 - Atherosclerotic heart disease of [place] coronary artery without angina pectoris (8) UTI (urinary tract infection) Priority: Secondary Status: Acute Qualifiers: Urinary tract infection type: acute cystitis Hematuria presence: with hematuria Qualified Code(s): N30.01 - Acute cystitis with hematuria Hospital course: Mr. Bernardo is a 68 year old male past medical history of hyperlipidemia hypertension myocardial infarction -STEMI with 2 drug-eluting stents thyroid disease-presented to [facility] ED [facility] with abnormal laboratory data that suggested severe anemia with reported hemoglobin 4.5 he did have a urological procedure in November has a chronic Fish catheter since the procedure patient has been experiencing gross hematuria. He has been experiencing worsening gross hematuria for the last 3 days prior to presentation. He was seen by urology and laboratory results were suggestive of severe anemia and was advised to seek medical attention. The patient has been experiencing lightheadedness and palpitations however he denies any chest pain or shortness of breath. Patient was transfused a total of 5 PRBCs during admission hemoglobin did improve up to 8-9. Plavix and aspirin were initially held he was evaluated by urology and underwent a TURP with cauterization-Fish catheter was eventually removed and hematuria has improved. Aspirin was resumed and patient will resume Plavix in 72 hours. Discussed case with cardiology patient was evaluated prior to surgery for clearance recommending patient resume Plavix once approved by urology. Patient did have a slight increase in his creatinine however this did improve and has returned to baseline. Urinalysis was obtained with culture which did grow Enterococcus faecalis-initiated on ampicillin and he will be discharged on Augmentin for a total 7 days. Vital signs are stable at this time patient is advised to follow-up with primary care provider and urology cardiology he will have his lab work checked as an outpatient to monitor CBC as well as renal function patient is advised to return to the emergency department if hematuria worsens or if he has difficulty urinating. Patient verbalizes understanding. - Time Spent with Patient Total time spent providing and/or coordinating discharge services: - Discharge Medications Prescriptions: No Action amLODIPine [Norvasc] 5 mg PO DAILY #30 tablet Clopidogrel [Plavix] 75 mg PO DAILY #30 tablet Losartan [Cozaar] 25 mg PO DAILY #30 tablet Metoprolol [Lopressor] 25 mg PO BID #60 tablet metFORMIN [Glucophage] 500 mg PO DAILY Atorvastatin Calcium 80 mg PO DAILY Aspirin Enteric Coated [Aspirin EC] 81 mg PO DAILY Finasteride [Proscar] 5 mg PO DAILY Ferrous Sulfate 325 mg PO DAILY Home Medications: Clopidogrel [Plavix] 75 mg PO DAILY #30 tablet 08/01/18 [Rx] Losartan [Cozaar] 25 mg PO DAILY #30 tablet 08/01/18 [Rx] Metoprolol [Lopressor] 25 mg PO BID #60 tablet 08/01/18 [Rx] amLODIPine [Norvasc] 5 mg PO DAILY #30 tablet 08/01/18 [Rx] Atorvastatin Calcium 80 mg PO DAILY 10/09/18 [History] metFORMIN [Glucophage] 500 mg PO DAILY 10/09/18 [History] Aspirin Enteric Coated [Aspirin EC] 81 mg PO DAILY 11/10/18 [History] Finasteride [Proscar] 5 mg PO DAILY 12/04/18 [History] Ferrous Sulfate 325 mg PO DAILY 01/05/19 [History] Allergies/Adverse Reactions: Allergy/AdvReac Type Severity Reaction Status Date / Time No Known Allergies Allergy Verified 01/05/19 22:58 Date of admission: 01/07/19 13:44 Primary care physician: PCP NONE Consults: 01/05/19 22:10 Consult to Urology [CONS] Stat Consulting Provider: [facility] [place] Reason for Consult: Hematuria. Anemia Time Notified: 22:10 Call Completed: Yes 01/07/19 18:13 Consult to Cardiology [CONS] Routine Comment: Consulting Provider: [facility] Reason for Consult: surgery clearance - antiplatlet therapy Time Notified: 18:14 Call Completed: Yes Discharging clinician: Concepcion Fisher Anticipated date of discharge: 01/10/19 - Constitutional Vitals: Temp Pulse Resp BP Pulse Ox 98.5 F 76 16 111/72 100 01/10/19 10:55 01/10/19 10:55 01/10/19 10:55 01/10/19 10:55 01/10/19 10:55 General appearance: Present: A&O X 3 Exam: Skin: Free of rash and discoloration. Eyes: Sclera is white. There is no discharge from eyes. ENMT: Oral/pharyngeal mucosa is normal in appearance. There is no discharge from nose or ears. Respiratory: Normal breath sounds with no crackles and wheezes bilaterally. CV: Heart is regular with no gallop or murmur. GI: Abdomen is flat and soft with no palpable mass or visceromegaly. : There is no tenderness in patient's flanks bilaterally. Neuro exam: He has good strength in upper and lower extremities. He has normal eye movements. Psychiatric: He has normal affect. His thought process is appropriate to the situation. - Patient Status Disposition: Home, Self-Care Condition: Fair Functional capacity at discharge: independent ambulation Overall status at discharge: patient is back to baseline - Discharge Instructions Follow Up With: John Meehan [Partnered Physician] - (The office will call you with a follow up appt.) - Diet and Activity Activity: increase activity as tolerated Diet: advance to your usual diet
== END 2019-01-10 14:24 | disposition home or self-care (01) | DRG 666 ==
LOC: EMEROOARM 20:50 → 3BNU 20:50
PROVIDERS: ADMIT Internal Medicine Nephrology; ATTEND Internal Medicine Nephrology
PROC: UROTURP (2019-01-08 12:30)

== ENCOUNTER 2020-08-04 13:27 | Observation (INO) ==
[2020-08-04] MEDS ORDERED: Ondansetron 4 MG/2 ML VIAL IVP ONE (13:59)
[2020-08-04] MEDS ORDERED: Morphine Sulfate 2 MG/ML SYRINGE IVP ONE (13:59)
[2020-08-04] MEDS ORDERED: 0.9 % Sodium Chloride 1,000 ML IVC ONE (13:59)
[2020-08-04] MEDS ORDERED: Isovue-370 500 ML BOTTLE IVP ONE ×2 (14:00→14:43)
[2020-08-04 14:27] LABS: Basophils # 0.1 K/mcL (0.0-0.2); Hematocrit 36.8 % (37.5-50.1); Hemoglobin 11.3 g/dL (12.9-16.9); Mean Corpuscular HGB Conc 30.7 g/dL (31.6-35.5); Mean Corpuscular Volume 91.1 fL (83.0-100.0); Mean Platelet Volume 10.9 fL (9.4-12.4); Nucleated Red Blood Cells 11.2 /100 WBC (0); Platelet Count 211 K/mcL (140-400); Red Blood Count 4.04 M/mcL (4.19-5.50); Red Cell Distribution Width 19.4 % (11.5-14.5); White Blood Count 6.7 K/mcL (4.3-11.1)
[2020-08-04 14:40] LABS: Albumin 3.9 g/dL (3.5-5.7); Albumin/Globulin Ratio 1.1 (1.1-2.2); Bilirubin,Direct 0.2 mg/dL (0.0-0.2); Bilirubin,Indirect 0.4 mg/dL (0.0-1.0); Bilirubin,Total 0.6 mg/dL (0.3-1.0); Calcium 9.7 mg/dL (8.6-10.3); Globulin 3.7 g/dL (2.4-3.5); Potassium 4.6 mEq/L (3.5-5.1); Total Protein 7.6 g/dL (6.4-8.9); Troponin I 0.05 ng/mL (< 0.04)
[2020-08-04 14:57] LABS: Lymphocytes # 2.8 K/mcL (0.6-4.6); Monocytes # 0.4 K/mcL (0.0-1.3); Neutrophils # 2.7 K/mcL (1.6-8.9); Platelet Estimate Normal (Normal); Reactive Lymphocytes Present (Not Present)
[2020-08-04 16:11] LABS: Bilirubin,Urine Negative (Negative); Blood,Urine Small (Negative); Clarity,Urine Turbid (Clear); Color,Urine Yellow (Yellow); Glucose,Urine (UA) Normal (Normal); Hyaline Casts,Urine Few per lpf (None Seen); Ketones,Urine Negative (Negative); Leukocyte Esterase,Urine Negative (Negative); Mucus,Urine Few per lpf (None-Few); Nitrite,Urine Negative (Negative); Protein,Urine >=300 mg/dL (Neg-Trace); Specific Gravity,Urine > 1.030 (1.010-1.025); Squamous Epithelial Cell,Urine Few per hpf (None-Few); Urobilinogen,Urine Normal (Normal)
[2020-08-04 17:34] LABS: Troponin I 0.04 ng/mL (< 0.04)
[2020-08-04] MEDS ORDERED: Ondansetron 4 MG/2 ML VIAL IVP PRN (17:36)
[2020-08-04] MEDS ORDERED: Naloxone 0.4 MG/ML INJ IVP PRN (17:36)
[2020-08-04] MEDS ORDERED: Dextrose Gel 15 GM/37.5 ML TUBE PO PRN ×2 (17:54)
[2020-08-04] MEDS ORDERED: *HR* Dextrose 50 % in Water (Vial) 50 ML VIAL IVP PRN (17:54)
[2020-08-04] MEDS ORDERED: D5% in Water 1,000 ML IVC PRN (17:54)
[2020-08-04] MEDS ORDERED: 0.9 % Sodium Chloride 1,000 ML IVC SCH (18:00)
[2020-08-04 18:44] LABS: Estimated Average Glucose 134 mg/dl; Hemoglobin A1C 6.3 %
[2020-08-04] MEDS: *HR* Heparin 5,000 UNIT/ML VIAL SQ SCH (19:41)
[2020-08-04] MEDS: cefTRIAXone 1,000 MG in Water for inj. (sterile) 10 ML IVP SCH (19:42)
[2020-08-04] MEDS: Insulin LISPRO 300 UNITS/3 ML VIAL SUBQ SCH (21:54)
[2020-08-04] MEDS ORDERED: 0.9 % Sodium Chloride 500 ML IV ONE (22:00)
[2020-08-04] MEDS: 0.9 % Sodium Chloride 1,000 ML IVC SCH (22:52)
[2020-08-04] MEDS: Acetaminophen 325 MG TABLET PO PRN (23:10)
[2020-08-05 01:58] LABS: White Blood Count 6.5 K/mcL (4.3-11.1)
[2020-08-05 01:59] LABS: Hematocrit 31.7 % (37.5-50.1); Mean Corpuscular HGB Conc 31.5 g/dL (31.6-35.5); Mean Corpuscular Hemoglobin 28.3 pg (28.0-33.3); Mean Corpuscular Volume 89.8 fL (83.0-100.0); Nucleated Red Blood Cells 11.7 /100 WBC (0); Platelet Count 156 K/mcL (140-400); Red Blood Count 3.53 M/mcL (4.19-5.50); Red Cell Distribution Width 19.7 % (11.5-14.5)
[2020-08-05 02:14] LABS: Calcium 8.3 mg/dL (8.6-10.3); Magnesium 2.4 mg/dL (1.6-2.6); Potassium 4.7 mEq/L (3.5-5.1)
[2020-08-05 02:31] LABS: Anisocytosis 1+ (Not Present); Lymphocytes # 1.7 K/mcL (0.6-4.6); Monocytes # 0.4 K/mcL (0.0-1.3); Platelet Estimate Normal (Normal); Polychromasia 1+ (Not Present); Reactive Lymphocytes Present (Not Present); Toxic Granulation Present (Not Present)
[2020-08-05] MEDS: *HR* Heparin 5,000 UNIT/ML VIAL SQ SCH ×2 (05:59→16:17)
[2020-08-05] MEDS: Insulin LISPRO 300 UNITS/3 ML VIAL SUBQ SCH ×4 (07:49→21:28)
[2020-08-05] MEDS: Finasteride 5 MG TABLET PO SCH (08:15)
[2020-08-05] MEDS: Bicalutamide 50 MG TABLET PO SCH (08:15)
[2020-08-05] MEDS: Aspirin Enteric Coated 81 MG Tablet PO SCH (08:15)
[2020-08-05] MEDS: 0.9 % Sodium Chloride 1,000 ML IVC SCH ×2 (08:15→18:08)
[2020-08-05] MEDS: amLODIPine 5 MG TABLET PO SCH (08:15)
[2020-08-05] MEDS: Acetaminophen 325 MG TABLET PO PRN (10:24)
[2020-08-05 14:38] LABS: INR 1.6; Prothrombin Time 18.6 Seconds (9.4-12.1)
[2020-08-05 14:54] LABS: Albumin 3.3 g/dL (3.5-5.7); Albumin/Globulin Ratio 1.1 (1.1-2.2); Bilirubin,Direct 0.2 mg/dL (0.0-0.2); Bilirubin,Indirect 0.3 mg/dL (0.0-1.0); Bilirubin,Total 0.5 mg/dL (0.3-1.0); Total Protein 6.3 g/dL (6.4-8.9)
[2020-08-05] MEDS: *HR* OxyCODONE/APAP 5/325 TABLET PO PRN ×2 (15:36→21:29)
[2020-08-05] MEDS: cefTRIAXone 1,000 MG in Water for inj. (sterile) 10 ML IVP SCH (16:18)
[2020-08-05] MEDS ORDERED: 0.9 % Sodium Chloride 1,000 ML IVC SCH (18:29)
[2020-08-06 01:55] LABS: Eosinophils # 0.2 K/mcL (0.0-0.6); Hematocrit 30.5 % (37.5-50.1); Hemoglobin 9.4 g/dL (12.9-16.9); Mean Corpuscular HGB Conc 30.8 g/dL (31.6-35.5); Mean Corpuscular Hemoglobin 28.3 pg (28.0-33.3); Mean Corpuscular Volume 91.9 fL (83.0-100.0); Mean Platelet Volume 10.6 fL (9.4-12.4); Platelet Count 148 K/mcL (140-400); Red Blood Count 3.32 M/mcL (4.19-5.50); Red Cell Distribution Width 19.6 % (11.5-14.5); White Blood Count 5.9 K/mcL (4.3-11.1)
[2020-08-06 03:18] LABS: Albumin 3.2 g/dL (3.5-5.7); Albumin/Globulin Ratio 1.1 (1.1-2.2); Bilirubin,Direct 0.4 mg/dL (0.0-0.2); Bilirubin,Indirect 0.2 mg/dL (0.0-1.0); Bilirubin,Total 0.6 mg/dL (0.3-1.0); Globulin 2.9 g/dL (2.4-3.5); Total Protein 6.1 g/dL (6.4-8.9)
[2020-08-06 03:20] LABS: BUN/Creatinine Ratio 34 (6-26); Blood Urea Nitrogen 40 mg/dL (8-23); Calcium 7.9 mg/dL (8.6-10.3); Carbon Dioxide 17 mEq/L (23-29); Chloride 109 mEq/L (98-107); Glucose 85 mg/dL (70-105); Osmolality,Calculated 295 (280-300); Potassium 4.4 mEq/L (3.5-5.1); Sodium 138 mEq/L (136-145); eGFR For African Americans > 60 (> 60); eGFR For Non-African Americans > 60 (> 60)
[2020-08-06 03:44] LABS: Lymphocytes # 1.2 K/mcL (0.6-4.6); Monocytes # 0.2 K/mcL (0.0-1.3); Neutrophils # 3.7 K/mcL (1.6-8.9); Platelet Estimate Normal (Normal)
[2020-08-06 03:45] LABS: Anisocytosis 1+ (Not Present); Polychromasia 1+ (Not Present); Toxic Granulation Present (Not Present)
[2020-08-06] MEDS: 0.9 % Sodium Chloride 1,000 ML IVC SCH ×2 (04:49→13:52)
[2020-08-06] MEDS: *HR* Heparin 5,000 UNIT/ML VIAL SQ SCH ×2 (04:51→17:05)
[2020-08-06] MEDS: *HR* OxyCODONE/APAP 5/325 TABLET PO PRN ×3 (04:57→19:55)
[2020-08-06] MEDS ORDERED: Doxycycline 100 MG in 0.9 % Sodium Chloride Mini Bag 100 ML IVPB SCH (08:00)
[2020-08-06] MEDS: Insulin LISPRO 300 UNITS/3 ML VIAL SUBQ SCH ×4 (08:12→19:43)
[2020-08-06] MEDS: Aspirin Enteric Coated 81 MG Tablet PO SCH (09:10)
[2020-08-06] MEDS: Bicalutamide 50 MG TABLET PO SCH (09:10)
[2020-08-06] MEDS: amLODIPine 5 MG TABLET PO SCH (09:10)
[2020-08-06] MEDS: Finasteride 5 MG TABLET PO SCH (09:10)
[2020-08-06] MEDS: Ampicillin/Sulbactam 3,000 MG in 0.9 % Sodium Chloride Mini Bag 100 ML IVPB SCH ×2 (14:21→19:53)
[2020-08-07] MEDS: Ampicillin/Sulbactam 3,000 MG in 0.9 % Sodium Chloride Mini Bag 100 ML IVPB SCH ×3 (01:00→11:16)
[2020-08-07] MEDS: *HR* Heparin 5,000 UNIT/ML VIAL SQ SCH ×2 (05:17→16:48)
[2020-08-07] MEDS: *HR* OxyCODONE/APAP 5/325 TABLET PO PRN ×2 (05:17→11:17)
[2020-08-07 05:41] LABS: Hematocrit 33.1 % (37.5-50.1); Hemoglobin 10.3 g/dL (12.9-16.9); Mean Corpuscular HGB Conc 31.1 g/dL (31.6-35.5); Mean Corpuscular Volume 89.9 fL (83.0-100.0); Mean Platelet Volume 10.8 fL (9.4-12.4); Nucleated Red Blood Cells 29.5 /100 WBC (0); Platelet Count 136 K/mcL (140-400); Red Blood Count 3.68 M/mcL (4.19-5.50); Red Cell Distribution Width 19.9 % (11.5-14.5); White Blood Count 5.5 K/mcL (4.3-11.1)
[2020-08-07 06:04] LABS: Alanine Aminotransferase 156 Units/L (7-52); Albumin 3.2 g/dL (3.5-5.7); Albumin/Globulin Ratio 1.1 (1.1-2.2); Alkaline Phosphatase 1088 Units/L (34-104); Aspartate Amino Transferase 288 Units/L (13-39); BUN/Creatinine Ratio 28 (6-26); Bilirubin,Direct 0.5 mg/dL (0.0-0.2); Bilirubin,Indirect 0.4 mg/dL (0.0-1.0); Bilirubin,Total 0.9 mg/dL (0.3-1.0); Blood Urea Nitrogen 35 mg/dL (8-23); Calcium 7.8 mg/dL (8.6-10.3); Carbon Dioxide 17 mEq/L (23-29); Chloride 108 mEq/L (98-107); Glucose 84 mg/dL (70-105); Osmolality,Calculated 293 (280-300); Potassium 4.6 mEq/L (3.5-5.1); Sodium 138 mEq/L (136-145); Total Protein 6.2 g/dL (6.4-8.9); eGFR For African Americans > 60 (> 60); eGFR For Non-African Americans 56 (> 60)
[2020-08-07 06:13] LABS: Lymphocytes # 1.9 K/mcL (0.6-4.6); Monocytes # 0.2 K/mcL (0.0-1.3); Neutrophils # 3.1 K/mcL (1.6-8.9)
[2020-08-07 06:14] LABS: Anisocytosis 1+ (Not Present); Platelet Estimate Slight Decrease (Normal); Reactive Lymphocytes Present (Not Present)
[2020-08-07] MEDS: Insulin LISPRO 300 UNITS/3 ML VIAL SUBQ SCH ×3 (08:18→16:48)
[2020-08-07 08:47] LABS: INR 1.5; Prothrombin Time 16.9 Seconds (9.4-12.1)
[2020-08-07] MEDS: amLODIPine 5 MG TABLET PO SCH (08:49)
[2020-08-07] MEDS: Finasteride 5 MG TABLET PO SCH (08:49)
[2020-08-07] MEDS: Aspirin Enteric Coated 81 MG Tablet PO SCH (08:49)
[2020-08-07 09:08] LABS: Hepatitis B Surface Antigen Nonreactive (Nonreactive)
[2020-08-07 09:37] LABS: Hepatitis C Virus Antibody Nonreactive (Nonreactive)
[2020-08-07 09:38] LABS: Hepatitis B Core IgM Nonreactive (Nonreactive)
[2020-08-07 09:39] LABS: Hepatitis A Antibody IgM Nonreactive (Nonreactive)
[2020-08-07] MEDS ORDERED: dexAMETHasone 4 MG TABLET PO SCH (10:58)
[2020-08-07] MEDS ORDERED: MetroNIDAZOLE 500 MG/100 ML 500 MG/100 ML BAG IVPB ONE (12:00)
[2020-08-07] MEDS ORDERED: cefTRIAXone 1,000 MG in Water for inj. (sterile) 10 ML IVP ONE (12:00)
[2020-08-07 17:02] VITALS: BP 145/82
[2020-08-09 07:27] LABS: ANA IgG by ELISA NONE DETECTED (None Detected)
== END 2020-08-07 19:11 | disposition home or self-care (01) ==
LOC: 2ANU 13:27 → EMEROOARM 13:27 → SUATTDRO 17:29 → 2ANU 18:37
PROVIDERS: ADMIT Family Medicine; ATTEND Student in an Organized Health Care Education/Training Program

== ENCOUNTER 2020-08-10 01:24 | Inpatient (IN) ==
[2020-08-10] MEDS ORDERED: 0.9 % Sodium Chloride 1,000 ML IVC ONE ×2 (01:39→03:31)
[2020-08-10 02:09] LABS: Hematocrit 34.1 % (37.5-50.1); Hemoglobin 10.8 g/dL (12.9-16.9); Immature Platelets 4.9 % (1.1-6.1); Mean Corpuscular HGB Conc 31.7 g/dL (31.6-35.5); Mean Corpuscular Hemoglobin 28.6 pg (28.0-33.3); Mean Corpuscular Volume 90.2 fL (83.0-100.0); Mean Platelet Volume 10.7 fL (9.4-12.4); Nucleated Red Blood Cells 47.4 /100 WBC (0); Platelet Count 107 K/mcL (140-400); Red Blood Count 3.78 M/mcL (4.19-5.50); Red Cell Distribution Width 21.2 % (11.5-14.5); White Blood Count 6.7 K/mcL (4.3-11.1)
[2020-08-10 02:17] LABS: INR 1.5; Prothrombin Time 17.3 Seconds (9.4-12.1)
[2020-08-10 02:20] LABS: Activated Partial Thrombo Time 34.2 Seconds (26.0-36.0)
[2020-08-10 02:30] LABS: Anisocytosis 2+ (Not Present); Lymphocytes # 2.4 K/mcL (0.6-4.6); Monocytes # 0.7 K/mcL (0.0-1.3); Neutrophils # 3.6 K/mcL (1.6-8.9); Platelet Estimate Decreased (Normal); Reactive Lymphocytes Present (Not Present)
[2020-08-10 02:31] LABS: Alanine Aminotransferase 328 Units/L (7-52); Albumin 3.4 g/dL (3.5-5.7); Albumin/Globulin Ratio 1.2 (1.1-2.2); Alkaline Phosphatase > 1500 Units/L (34-104); Aspartate Amino Transferase 767 Units/L (13-39); BUN/Creatinine Ratio 40 (6-26); Bilirubin,Total 1.4 mg/dL (0.3-1.0); Blood Urea Nitrogen 63 mg/dL (8-23); Calcium 8.4 mg/dL (8.6-10.3); Carbon Dioxide 13 mEq/L (23-29); Chloride 104 mEq/L (98-107); Globulin 2.9 g/dL (2.4-3.5); Glucose 82 mg/dL (70-105); Magnesium 2.3 mg/dL (1.6-2.6); Osmolality,Calculated 303 (280-300); Potassium 5.5 mEq/L (3.5-5.1); Sodium 138 mEq/L (136-145); Total Protein 6.3 g/dL (6.4-8.9); eGFR For African Americans 53 (> 60); eGFR For Non-African Americans 44 (> 60)
[2020-08-10] MEDS ORDERED: Metoclopramide 10 MG/2 ML VIAL IVP ONE (03:31)
[2020-08-10] MEDS ORDERED: Isovue-370 500 ML BOTTLE IVP ONE (04:17)
[2020-08-10] MEDS ORDERED: Ondansetron 4 MG/2 ML VIAL IVP PRN (05:05)
[2020-08-10] MEDS ORDERED: Naloxone 0.4 MG/ML INJ IVP PRN (05:05)
[2020-08-10] MEDS ORDERED: Calcium Gluconate 1gm/50mL 1 GM/50 ML BAG IVPB ONE (05:13)
[2020-08-10 05:24] LABS: Acetaminophen < 10 mcg/mL (10-20)
[2020-08-10] MEDS ORDERED: *HR* Dextrose 50 % in Water (Vial) 50 ML VIAL IVP ONE (05:30)
[2020-08-10] MEDS ORDERED: Insulin Human Regular 10 UNIT in 0.9 % Sodium Chloride 10 ML IV ONE (05:35)
[2020-08-10] MEDS ORDERED: cefTRIAXone 1,000 MG in Water for inj. (sterile) 10 ML IVP ONE (05:38)
[2020-08-10] MEDS: 0.9 % Sodium Chloride 1,000 ML IVC SCH ×2 (05:55→15:15)
[2020-08-10] MEDS: Pantoprazole 40 MG VIAL IVP SCH ×2 (06:11→17:54)
[2020-08-10 07:06] LABS: Calcium 7.6 mg/dL (8.6-10.3); Potassium 5.1 mEq/L (3.5-5.1); Troponin I 0.1 ng/mL (< 0.04)
[2020-08-10] MEDS ORDERED: Gadolinium Contrast Agent (WT Based) IV PRN (13:31)
[2020-08-10] MEDS: Doxycycline 100 MG in 0.9 % Sodium Chloride Mini Bag 100 ML IVPB SCH (17:54)
[2020-08-10 22:12] LABS: Bacteria,Urine Few per hpf (None-Few); Bilirubin,Urine Negative (Negative); Blood,Urine Moderate (Negative); Clarity,Urine Clear (Clear); Color,Urine Yellow (Yellow); Glucose,Urine (UA) Normal (Normal); Ketones,Urine Negative (Negative); Leukocyte Esterase,Urine Negative (Negative); Mucus,Urine Few per lpf (None-Few); Nitrite,Urine Negative (Negative); Protein,Urine 70 mg/dL (Neg-Trace); RBC,Urine 0-3 per hpf (0-3); Specific Gravity,Urine > 1.030 (1.010-1.025); Urobilinogen,Urine Normal (Normal); WBC,Urine 0-3 per hpf (0-3)
[2020-08-10] MEDS: *HR* OxyCODONE Immed Rel 5 MG TABLET PO PRN (23:09)
[2020-08-11] MEDS ORDERED: 0.9 % Sodium Chloride 500 ML IVC ONE (00:41)
[2020-08-11] MEDS ORDERED: 0.9 % Sodium Chloride 1,000 ML IVC SCH (00:45)
[2020-08-11 04:36] LABS: Hematocrit 28.1 % (37.5-50.1); Mean Corpuscular HGB Conc 31.3 g/dL (31.6-35.5); Red Cell Distribution Width 21.2 % (11.5-14.5); White Blood Count 4.8 K/mcL (4.3-11.1)
[2020-08-11 04:38] LABS: Hemoglobin 8.8 g/dL (12.9-16.9); Immature Platelets 4.3 % (1.1-6.1); Mean Corpuscular Volume 89.5 fL (83.0-100.0); Mean Platelet Volume 10.7 fL (9.4-12.4); Nucleated Red Blood Cells 45.2 /100 WBC (0); Red Blood Count 3.14 M/mcL (4.19-5.50)
[2020-08-11 04:47] LABS: BUN/Creatinine Ratio 37 (6-26); Blood Urea Nitrogen 50 mg/dL (8-23); Calcium 6.7 mg/dL (8.6-10.3); Carbon Dioxide 14 mEq/L (23-29); Chloride 109 mEq/L (98-107); Glucose 95 mg/dL (70-105); Osmolality,Calculated 293 (280-300); Potassium 4.5 mEq/L (3.5-5.1); Sodium 135 mEq/L (136-145); eGFR For African Americans > 60 (> 60); eGFR For Non-African Americans 52 (> 60)
[2020-08-11 04:55] LABS: Platelet Count 66 K/mcL (140-400)
[2020-08-11 05:19] LABS: Lymphocytes # 1.5 K/mcL (0.6-4.6); Monocytes # 0.2 K/mcL (0.0-1.3); Neutrophils # 2.6 K/mcL (1.6-8.9)
[2020-08-11 05:20] LABS: Anisocytosis 2+ (Not Present); Hypochromasia Present (Not Present); Platelet Estimate Decreased (Normal); Poikilocytosis 1+ (Not Present); Polychromasia 1+ (Not Present); Reactive Lymphocytes Present (Not Present)
[2020-08-11] MEDS ORDERED: 0.9 % Sodium Chloride 1,000 ML IVC ONE (05:20)
[2020-08-11] MEDS: Doxycycline 100 MG in 0.9 % Sodium Chloride Mini Bag 100 ML IVPB SCH ×2 (05:47→17:39)
[2020-08-11] MEDS: Pantoprazole 40 MG VIAL IVP SCH (06:07)
[2020-08-11 08:26] LABS: Alanine Aminotransferase 256 Units/L (7-52); Albumin 2.9 g/dL (3.5-5.7); Albumin/Globulin Ratio 1.3 (1.1-2.2); Alkaline Phosphatase 1297 Units/L (34-104); Aspartate Amino Transferase 560 Units/L (13-39); Bilirubin,Direct 0.7 mg/dL (0.0-0.2); Bilirubin,Indirect 0.5 mg/dL (0.0-1.0); Bilirubin,Total 1.2 mg/dL (0.3-1.0); Globulin 2.3 g/dL (2.4-3.5); Total Protein 5.2 g/dL (6.4-8.9)
[2020-08-11] MEDS: cefTRIAXone 1,000 MG in Water for inj. (sterile) 10 ML IVP SCH (09:02)
[2020-08-11] MEDS ORDERED: Lidocaine -MPF 2% 2 ML VIAL ONE (13:49)
[2020-08-11] MEDS ORDERED: *HR* Propofol 200 MG/20 ML VIAL IVP ONE (13:49)
[2020-08-11] MEDS ORDERED: *HR* EPINEPHrine 1 MG/10 ML SYRINGE IVP ONE (14:47)
[2020-08-11] MEDS ORDERED: *HR* EPINEPHrine 1 MG/10 ML SYRINGE INTRATRACH ONE (15:15)
[2020-08-11] MEDS ORDERED: *HR* FentaNYL (PF) 100 MCG/2 ML VIAL ONE (15:26)
[2020-08-11] MEDS ORDERED: Metoprolol XL (24 HR) Succ 25 MG TAB.ER.24H PO SCH (15:30)
[2020-08-11] MEDS: Pantoprazole 40 MG in 0.9 % Sodium Chloride Mini Bag 100 ML IVC SCH ×2 (17:38→20:14)
[2020-08-11] MEDS: Metoprolol XL (24 HR) Succ 25 MG TAB.ER.24H PO SCH (17:38)
[2020-08-11] MEDS: *HR* OxyCODONE Immed Rel 5 MG TABLET PO PRN (20:19)
[2020-08-12] MEDS: Pantoprazole 40 MG in 0.9 % Sodium Chloride Mini Bag 100 ML IVC SCH ×3 (01:15→10:26)
[2020-08-12 02:33] LABS: Hemoglobin 9.3 g/dL (12.9-16.9); Mean Corpuscular Hemoglobin 28.4 pg (28.0-33.3); Red Blood Count 3.28 M/mcL (4.19-5.50); Red Cell Distribution Width 21.8 % (11.5-14.5)
[2020-08-12 02:35] LABS: Eosinophils # 0.1 K/mcL (0.0-0.6); Hematocrit 29.7 % (37.5-50.1); Immature Platelets 5.3 % (1.1-6.1); Mean Corpuscular HGB Conc 31.3 g/dL (31.6-35.5); Mean Corpuscular Volume 90.5 fL (83.0-100.0); White Blood Count 5.3 K/mcL (4.3-11.1)
[2020-08-12 02:38] LABS: Platelet Count 63 K/mcL (140-400)
[2020-08-12 02:52] LABS: Calcium 6.5 mg/dL (8.6-10.3); Potassium 4.9 mEq/L (3.5-5.1)
[2020-08-12 02:57] LABS: Lymphocytes # 1.5 K/mcL (0.6-4.6); Monocytes # 0.9 K/mcL (0.0-1.3); Neutrophils # 2.8 K/mcL (1.6-8.9)
[2020-08-12 02:58] LABS: Microcytosis Present (Not Present); Platelet Estimate Decreased (Normal); Polychromasia 2+ (Not Present)
[2020-08-12 02:59] LABS: Poikilocytosis 2+ (Not Present)
[2020-08-12 03:00] LABS: Anisocytosis 2+ (Not Present); Hypochromasia Present (Not Present)
[2020-08-12] MEDS: Doxycycline 100 MG in 0.9 % Sodium Chloride Mini Bag 100 ML IVPB SCH ×2 (05:37→17:25)
[2020-08-12] MEDS ORDERED: Sodium Bicarbonate 150 MEQ in D5% in Water 1,000 ML IVC SCH (07:30)
[2020-08-12] MEDS: cefTRIAXone 1,000 MG in Water for inj. (sterile) 10 ML IVP SCH (09:13)
[2020-08-12] MEDS: Finasteride 5 MG TABLET PO SCH (09:14)
[2020-08-12] MEDS: Aspirin Enteric Coated 81 MG Tablet PO SCH (09:14)
[2020-08-12] MEDS: Metoprolol XL (24 HR) Succ 25 MG TAB.ER.24H PO SCH (09:15)
[2020-08-12] MEDS: Pantoprazole 40 MG VIAL IVP SCH (17:25)
[2020-08-12] MEDS: Acetaminophen 325 MG TABLET PO PRN (19:09)
[2020-08-13 05:35] LABS: Hemoglobin 8.6 g/dL (12.9-16.9); Mean Corpuscular Volume 90.3 fL (83.0-100.0)
[2020-08-13 05:37] LABS: Basophils # 0.1 K/mcL (0.0-0.2); Hematocrit 27.1 % (37.5-50.1); Immature Platelets 4.8 % (1.1-6.1); Mean Corpuscular HGB Conc 31.7 g/dL (31.6-35.5); Mean Corpuscular Hemoglobin 28.7 pg (28.0-33.3); Nucleated Red Blood Cells 37.7 /100 WBC (0); Red Cell Distribution Width 21.6 % (11.5-14.5); White Blood Count 4.4 K/mcL (4.3-11.1)
[2020-08-13 05:44] LABS: Platelet Count 45 K/mcL (140-400)
[2020-08-13 05:50] LABS: Calcium 6.6 mg/dL (8.6-10.3); Potassium 4.3 mEq/L (3.5-5.1)
[2020-08-13 05:53] LABS: Albumin 2.6 g/dL (3.5-5.7); Albumin/Globulin Ratio 1.1 (1.1-2.2); Bilirubin,Direct 0.8 mg/dL (0.0-0.2); Bilirubin,Indirect 0.4 mg/dL (0.0-1.0); Bilirubin,Total 1.2 mg/dL (0.3-1.0); Globulin 2.3 g/dL (2.4-3.5); Total Protein 4.9 g/dL (6.4-8.9)
[2020-08-13 06:07] LABS: Lymphocytes # 1.1 K/mcL (0.6-4.6); Monocytes # 0.3 K/mcL (0.0-1.3); Neutrophils # 2.7 K/mcL (1.6-8.9)
[2020-08-13 06:08] LABS: Anisocytosis 2+ (Not Present); Hypochromasia Present (Not Present); Microcytosis Present (Not Present); Platelet Estimate Decreased (Normal); Poikilocytosis 1+ (Not Present); Polychromasia 1+ (Not Present)
[2020-08-13] MEDS: Pantoprazole 40 MG VIAL IVP SCH ×2 (06:13→17:48)
[2020-08-13] MEDS: Doxycycline 100 MG in 0.9 % Sodium Chloride Mini Bag 100 ML IVPB SCH ×2 (06:13→17:52)
[2020-08-13] MEDS: cefTRIAXone 1,000 MG in Water for inj. (sterile) 10 ML IVP SCH (08:30)
[2020-08-13] MEDS: Aspirin Enteric Coated 81 MG Tablet PO SCH (08:37)
[2020-08-13] MEDS: Finasteride 5 MG TABLET PO SCH (08:38)
[2020-08-13] MEDS: Metoprolol XL (24 HR) Succ 25 MG TAB.ER.24H PO SCH (08:38)
[2020-08-13] MEDS: Sucralfate 1 GM TABLET PO SCH ×2 (17:48→21:16)
[2020-08-13] MEDS: Melatonin 3 MG TABLET PO PRN (21:36)
[2020-08-14 01:41] LABS: Eosinophils # 0.1 K/mcL (0.0-0.6); Hematocrit 27.5 % (37.5-50.1); Hemoglobin 8.6 g/dL (12.9-16.9); Immature Platelets 5.8 % (1.1-6.1); Mean Corpuscular HGB Conc 31.3 g/dL (31.6-35.5); Mean Corpuscular Hemoglobin 28.2 pg (28.0-33.3); Mean Corpuscular Volume 90.2 fL (83.0-100.0); Nucleated Red Blood Cells 31.4 /100 WBC (0); Red Blood Count 3.05 M/mcL (4.19-5.50); Red Cell Distribution Width 22.4 % (11.5-14.5); White Blood Count 4.8 K/mcL (4.3-11.1)
[2020-08-14 01:43] LABS: Platelet Count 34 K/mcL (140-400)
[2020-08-14 01:55] LABS: Calcium 6.5 mg/dL (8.6-10.3); Potassium 4.6 mEq/L (3.5-5.1)
[2020-08-14 02:07] LABS: Anisocytosis 1+ (Not Present); Lymphocytes # 1.3 K/mcL (0.6-4.6); Neutrophils # 2.7 K/mcL (1.6-8.9); Platelet Estimate Decreased (Normal); Poikilocytosis 1+ (Not Present); Polychromasia 1+ (Not Present); Smudge Cells Present (Not Present)
[2020-08-14] MEDS: Doxycycline 100 MG in 0.9 % Sodium Chloride Mini Bag 100 ML IVPB SCH ×2 (06:56→16:25)
[2020-08-14] MEDS: Pantoprazole 40 MG VIAL IVP SCH ×2 (06:56→16:25)
[2020-08-14] MEDS: Sucralfate 1 GM TABLET PO SCH ×4 (08:10→22:21)
[2020-08-14] MEDS: Acetaminophen 325 MG TABLET PO PRN ×2 (08:10→22:21)
[2020-08-14] MEDS: Aspirin Enteric Coated 81 MG Tablet PO SCH (08:10)
[2020-08-14] MEDS: cefTRIAXone 1,000 MG in Water for inj. (sterile) 10 ML IVP SCH (08:10)
[2020-08-14] MEDS: Finasteride 5 MG TABLET PO SCH (08:11)
[2020-08-14] MEDS: Metoprolol XL (24 HR) Succ 25 MG TAB.ER.24H PO SCH (08:11)
[2020-08-14 09:56] LABS: % Iron Saturation 46 % (20-55); Iron 78 mcg/dL (65-175); Transferrin 122 mg/dL (203-362)
[2020-08-14 10:14] LABS: Ferritin > 1500 ng/mL (20-250)
[2020-08-14 15:09] LABS: Folate 8.1 ng/mL (3.0-16.0)
[2020-08-14 15:11] LABS: Vitamin B12 > 1500 pg/mL (250-1100)
[2020-08-14 17:14] LABS: Lactate Dehydrogenase 3584 Units/L (140-271)
[2020-08-14] MEDS ORDERED: 0.9 % Sodium Chloride 250 ML IVC SCH (19:30)
[2020-08-14] MEDS: Melatonin 3 MG TABLET PO PRN (22:21)
[2020-08-15 02:35] LABS: Bilirubin,Urine Negative (Negative); Blood,Urine Large (Negative); Clarity,Urine Turbid (Clear); Color,Urine Yellow (Yellow); Glucose,Urine (UA) Normal (Normal); Ketones,Urine Negative (Negative); Leukocyte Esterase,Urine Negative (Negative); Nitrite,Urine Negative (Negative); Protein,Urine 70 mg/dL (Neg-Trace); RBC,Urine TNTC per hpf (0-3); Specific Gravity,Urine 1.017 (1.010-1.025); Squamous Epithelial Cell,Urine Few per hpf (None-Few); Urobilinogen,Urine Normal (Normal)
[2020-08-15] MEDS: Doxycycline 100 MG in 0.9 % Sodium Chloride Mini Bag 100 ML IVPB SCH (05:07)
[2020-08-15] MEDS: Pantoprazole 40 MG VIAL IVP SCH (05:07)
[2020-08-15] MEDS: cefTRIAXone 1,000 MG in Water for inj. (sterile) 10 ML IVP SCH (11:16)
[2020-08-15] MEDS: Metoprolol XL (24 HR) Succ 25 MG TAB.ER.24H PO SCH (11:17)
[2020-08-15] MEDS: Finasteride 5 MG TABLET PO SCH (11:17)
[2020-08-15] MEDS: Aspirin Enteric Coated 81 MG Tablet PO SCH (11:17)
[2020-08-15] MEDS: Sucralfate 1 GM TABLET PO SCH ×2 (11:18→13:01)
[2020-08-15 12:25] VITALS: BP 100/67
[2020-08-15 13:52] LABS: Soluble Transferrin Receptor 4.2 mg/L (2.2-5.0)
[2020-08-15 14:07] LABS: Hematocrit 27.8 % (37.5-50.1); Hemoglobin 8.9 g/dL (12.9-16.9); Immature Platelets 3.8 % (1.1-6.1); Mean Corpuscular Hemoglobin 28.3 pg (28.0-33.3); Mean Corpuscular Volume 88.3 fL (83.0-100.0); Nucleated Red Blood Cells 29.3 /100 WBC (0); Red Blood Count 3.15 M/mcL (4.19-5.50); Red Cell Distribution Width 22.7 % (11.5-14.5); White Blood Count 5.5 K/mcL (4.3-11.1)
[2020-08-15 14:12] LABS: Platelet Count 57 K/mcL (140-400)
[2020-08-15 14:45] LABS: Calcium 6.2 mg/dL (8.6-10.3); Potassium 4.5 mEq/L (3.5-5.1)
[2020-08-15 15:08] LABS: Lymphocytes # 1.4 K/mcL (0.6-4.6); Monocytes # 0.4 K/mcL (0.0-1.3); Neutrophils # 3.4 K/mcL (1.6-8.9)
[2020-08-15 15:16] LABS: Anisocytosis 2+ (Not Present); Platelet Estimate Marked Decrease (Normal)
[2020-08-15 15:18] LABS: Polychromasia 1+ (Not Present); Reactive Lymphocytes Present (Not Present)
== END 2020-08-15 17:21 | disposition home health service (06) | DRG 871 ==
LOC: EMEROOARM 01:24 → 2NENU 01:24 → SUATTDRO 04:54 → 2NENU 05:22
PROVIDERS: ADMIT Family Medicine; ATTEND Internal Medicine
PROC: ENDOEBX (2020-08-11 13:00)

== ENCOUNTER 2020-08-17 04:01 | Inpatient (IN) ==
[2020-08-17] MEDS ORDERED: *HR* Rocuronium Bromide 50 MG/5 ML VIAL IVP ONE (04:02)
[2020-08-17] MEDS ORDERED: *HR* Etomidate 20 MG/10 ML AMPUL IVP ONE (04:02)
[2020-08-17] MEDS ORDERED: Ipratropium/Albuterol Neb 3 ML IH ONE (04:26)
[2020-08-17] MEDS ORDERED: Dexamethasone 4 MG/ML VIAL IVP ONE (04:27)
[2020-08-17] MEDS ORDERED: *HR* Heparin 5,000 UNIT/ML VIAL IVP PRN ×3 (04:30→17:37)
[2020-08-17 05:02] LABS: ABG Base Excess -27 mEq/L (-2 to 3); ABG HCO3 4 mEq/L (21-27); ABG Oxygen Saturation 81 % (95-98); ABG PCO2 19 mmHg (35-45); ABG PH 6.93 pH Units (7.32-7.45); ABG PO2 72 mmHg (85-104); ABG TCO2 < 5 mEq/L (20-26)
[2020-08-17] MEDS: Heparin 25,000UNIT/250ML 1/2NS 25,000 UNIT/250 ML IV.SOLN IVC SCH ×2 (05:34→06:06)
[2020-08-17] MEDS: *HR* Heparin 5,000 UNIT/ML VIAL IVP ONE ×2 (05:40→06:21)
[2020-08-17 05:42] LABS: Heparin anti-factor XA UFH 0.33 IU/mL (0.30-0.70); INR 2.6; Prothrombin Time 29.8 Seconds (9.4-12.1)
[2020-08-17 05:44] LABS: Activated Partial Thrombo Time 83.1 Seconds (26.0-36.0)
[2020-08-17] MEDS ORDERED: *HR* Dextrose 50 % in Water (Vial) 50 ML VIAL ONE (06:24)
[2020-08-17] MEDS ORDERED: *HR* Dextrose 50 % in Water (Vial) 50 ML VIAL IVP ONE ×2 (06:30→13:30)
[2020-08-17 06:33] LABS: Hematocrit 32.5 % (37.5-50.1); Hemoglobin 9.3 g/dL (12.9-16.9); Immature Platelets 6.9 % (1.1-6.1); Mean Corpuscular HGB Conc 28.6 g/dL (31.6-35.5); Mean Corpuscular Hemoglobin 27.8 pg (28.0-33.3); Mean Corpuscular Volume 97.3 fL (83.0-100.0); Red Blood Count 3.34 M/mcL (4.19-5.50); Red Cell Distribution Width 24.1 % (11.5-14.5); White Blood Count 15.7 K/mcL (4.3-11.1)
[2020-08-17 06:39] LABS: Platelet Count 50 K/mcL (140-400)
[2020-08-17 06:45] LABS: Carbon Dioxide 5 mEq/L (23-29); Troponin I 0.17 ng/mL (< 0.04)
[2020-08-17] MEDS ORDERED: Piperacillin/Tazobactam 3.375 GM in Water for inj. (sterile) 20 ML IVP ONE (06:47)
[2020-08-17 06:49] LABS: VBG HCO3 5 mEq/L (21-27); VBG PCO2 36 mmHg (41-51); VBG PH 6.71 pH Units (7.32-7.42); VBG PO2 77 mmHg (25-50)
[2020-08-17 06:52] LABS: Alanine Aminotransferase 173 Units/L (7-52); Albumin 3.1 g/dL (3.5-5.7); Alkaline Phosphatase 1379 Units/L (34-104); Aspartate Amino Transferase 757 Units/L (13-39); BUN/Creatinine Ratio 23 (6-26); Bilirubin,Indirect 0.6 mg/dL (0.0-1.0); Bilirubin,Total 1.6 mg/dL (0.3-1.0); Blood Urea Nitrogen 56 mg/dL (8-23); Calcium 6.7 mg/dL (8.6-10.3); Chloride 106 mEq/L (98-107); Ferritin > 1500 ng/mL (20-250); Glucose 57 mg/dL (70-105); Lactate Dehydrogenase > 3600 Units/L (140-271); Magnesium 2.6 mg/dL (1.6-2.6); Osmolality,Calculated 301 (280-300); Sodium 139 mEq/L (136-145); Total Protein 6.1 g/dL (6.4-8.9); eGFR For African Americans 32 (> 60); eGFR For Non-African Americans 26 (> 60)
[2020-08-17 06:58] LABS: Anisocytosis 3+ (Not Present); Eosinophils # 0.3 K/mcL (0.0-0.6); Lymphocytes # 8.5 K/mcL (0.6-4.6); Monocytes # 1.6 K/mcL (0.0-1.3); Platelet Estimate Decreased (Normal); Polychromasia 2+ (Not Present)
[2020-08-17] MEDS ORDERED: Vasopressin 40 UNIT in D5% in Water 100 ML IVC SCH (07:45)
[2020-08-17] MEDS ORDERED: FentaNYL (PF) 1,000 MCG/100 ML IV.SOLN IVC SCH (07:45)
[2020-08-17] MEDS ORDERED: Midazolam HCl 50 MG/100 ML IV.SOLN IVC SCH (07:45)
[2020-08-17] MEDS: Norepinephrine 4 MG/254 ML IV.SOLN IVC SCH ×2 (07:57→20:00)
[2020-08-17] MEDS ORDERED: Vancomycin 1,250 MG/262.5 ML IV.SOLN IVPB ONE (08:00)
[2020-08-17 09:42] LABS: C-Reactive Protein 222 mg/L (Less than 10)
[2020-08-17 10:16] LABS: Amorphous Sediment,Urine Few per hpf (None-Few); Bacteria,Urine Few per hpf (None-Few); Bilirubin,Urine Negative (Negative); Blood,Urine Large (Negative); Clarity,Urine Ex.Turbid (Clear); Color,Urine Yellow (Yellow); Glucose,Urine (UA) Normal (Normal); Ketones,Urine Trace mg/dL (Negative); Leukocyte Esterase,Urine Negative (Negative); Mucus,Urine Few per lpf (None-Few); Nitrite,Urine Negative (Negative); PH,Urine 5.5 pH Units (5.0-8.0); Protein,Urine 200 mg/dL (Neg-Trace); RBC,Urine TNTC per hpf (0-3); Specific Gravity,Urine 1.015 (1.010-1.025); Urobilinogen,Urine Normal (Normal); WBC,Urine 15-30 per hpf (0-3)
[2020-08-17 10:31] LABS: ABG Base Excess -27 mEq/L (-2 to 3); ABG HCO3 7 mEq/L (21-27); ABG Oxygen Saturation 93 % (95-98); ABG PCO2 42 mmHg (35-45); ABG PH 6.81 pH Units (7.32-7.45); ABG PO2 119 mmHg (85-104); ABG TCO2 8 mEq/L (20-26); Blood Gas Modality AF; Blood Gas VT 500 cc
[2020-08-17] MEDS ORDERED: Ondansetron 4 MG/2 ML VIAL IVP PRN (11:07)
[2020-08-17] MEDS ORDERED: Naloxone 0.4 MG/ML INJ IVP PRN (11:07)
[2020-08-17] MEDS: Sodium Bicarbonate 150 MEQ in D5% in Water 1,000 ML IVC SCH ×2 (11:42→21:14)
[2020-08-17] MEDS ORDERED: Perflutren Lipid Microsphere 1.3 ML in 0.9 % Sodium Chloride 8.7 ML IVP PRN (12:31)
[2020-08-17 12:41] LABS: Mean Corpuscular HGB Conc 29.1 g/dL (31.6-35.5)
[2020-08-17 12:43] LABS: Hematocrit 26.5 % (37.5-50.1); Hemoglobin 7.7 g/dL (12.9-16.9); Immature Platelets 7.1 % (1.1-6.1); Mean Corpuscular Hemoglobin 28.1 pg (28.0-33.3); Mean Corpuscular Volume 96.7 fL (83.0-100.0); Nucleated Red Blood Cells 24.2 /100 WBC (0); Red Blood Count 2.74 M/mcL (4.19-5.50); Red Cell Distribution Width 24.4 % (11.5-14.5); White Blood Count 11.9 K/mcL (4.3-11.1)
[2020-08-17 12:49] LABS: INR 2.8
[2020-08-17] MEDS: Ringers Solution, Lactated 1,000 ML IVC SCH ×2 (12:49→15:27)
[2020-08-17 12:52] LABS: Activated Partial Thrombo Time 80.4 Seconds (26.0-36.0)
[2020-08-17] MEDS: Hydrocortisone Sodium Succ 100 MG/2 ML VIAL IVP SCH ×2 (12:56→18:40)
[2020-08-17 13:06] LABS: Platelet Count 39 K/mcL (140-400); Troponin I 0.19 ng/mL (< 0.04)
[2020-08-17 13:12] LABS: Lymphocytes # 4.1 K/mcL (0.6-4.6); Monocytes # 2.4 K/mcL (0.0-1.3); Neutrophils # 4.8 K/mcL (1.6-8.9); Platelet Estimate Marked Decrease (Normal)
[2020-08-17 13:17] LABS: Albumin 2.6 g/dL (3.5-5.7); Albumin/Globulin Ratio 1.1 (1.1-2.2); Bilirubin,Indirect 0.5 mg/dL (0.0-1.0); Bilirubin,Total 1.5 mg/dL (0.3-1.0); Calcium 6.6 mg/dL (8.6-10.3); Globulin 2.3 g/dL (2.4-3.5); Potassium 6.7 mEq/L (3.5-5.1); Total Protein 4.9 g/dL (6.4-8.9)
[2020-08-17] MEDS ORDERED: Calcium Chloride 1,000 MG in 0.9 % Sodium Chloride 100 ML IVPB ONE (13:22)
[2020-08-17] MEDS ORDERED: *HR* Norepinephrine 4 MG/4 ML VIAL IVC ONE (13:58)
[2020-08-17] MEDS ORDERED: 0.9 % Sodium Chloride 250 ML ONE ×2 (13:58→15:03)
[2020-08-17] MEDS ORDERED: 0.9 % Sodium Chloride 250 ML IV ONE (15:03)
[2020-08-17] MEDS ORDERED: *HR* Heparin 5,000 UNIT/ML VIAL ONE (15:13)
[2020-08-17 17:24] LABS: ABG Base Excess -22 mEq/L (-2 to 3); ABG HCO3 8 mEq/L (21-27); ABG Oxygen Saturation 84 % (95-98); ABG PCO2 36 mmHg (35-45); ABG PH 6.97 pH Units (7.32-7.45); ABG PO2 74 mmHg (85-104); ABG TCO2 9 mEq/L (20-26); Blood Gas VT 500 cc
[2020-08-17] MEDS ORDERED: Calcium Gluconate 1gm/50mL 1 GM/50 ML BAG IVPB PRN ×2 (17:37)
[2020-08-17] MEDS ORDERED: PrismaSATE BGK 4/2.5 5,000 ML CRRT SCH ×2 (17:45)
[2020-08-17] MEDS ORDERED: 0.9 % Sodium Chloride 1,000 ML PRIME SCH (17:45)
[2020-08-17] MEDS ORDERED: Calcium Chloride 4,000 MG in 0.9 % Sodium Chloride 1,000 ML CRRT SCH (17:45)
[2020-08-17] MEDS ORDERED: Azithromycin 500 MG in 0.9 % Sodium Chloride 250 ML IVPB SCH (19:00)
[2020-08-17 21:18] VITALS: BP 90/59
[2020-08-18 05:35] LABS: Acinetobacter baumannii by PCR Not Detected (Not Detect); Candida albicans by PCR Not Detected (Not Detect); Candida glabrata by PCR Not Detected (Not Detect); Candida krusei by PCR Not Detected (Not Detect); Candida parapsilosis by PCR Not Detected (Not Detect); Candida tropicalis by PCR Not Detected (Not Detect); Enterobacter cloacae Cmplx PCR Not Detected (Not Detect); Enterobacteriaceae by PCR Not Detected (Not Detect); Enterococcus by PCR DETECTED (Not Detect); Escherichia coli by PCR Not Detected (Not Detect); Klebsiella oxytoca by PCR Not Detected (Not Detect); Klebsiella pneumoniae by PCR Not Detected (Not Detect); Proteus by PCR Not Detected (Not Detect); Pseudomonas aeruginosa by PCR Not Detected (Not Detect); Serratia marcescens by PCR Not Detected (Not Detect); Staphylococcus aureus by PCR Not Detected (Not Detect); Staphylococcus by PCR Not Detected (Not Detect); Streptococcus agalactiae(B)PCR Not Detected (Not Detect); Streptococcus by PCR Not Detected (Not Detect); Streptococcus pneumoniae PCR Not Detected (Not Detect); Streptococcus pyogenes (A) PCR Not Detected (Not Detect); vanA/B Vancomycin-Resist Genes DETECTED (Not Detect)
[2020-08-18] MEDS ORDERED: Cefepime HCl 1,000 MG in 0.9 % Sodium Chloride Mini Bag 100 ML IVPB SCH (06:00)
== END 2020-08-17 22:35 | disposition short-term general hospital (02) | DRG 871 ==
LOC: EMEROOARM 04:01 → ICNU 14:52
PROVIDERS: ADMIT Pediatrics; ATTEND Pediatrics